=== PATIENT | female | born 1930 | race Caucasian/White ===

== ENCOUNTER 2017-04-24 19:26 | Inpatient (IN) | payer MEDICARE, OTHER ==
[~2017-04-24] VITALS: Ht 157.5 cm; Wt 78.1 kg
[2017-04-24 20:40] LABS: BASO # 0.1 x10^3/uL (0.0-0.2); BASO % 1 % (0-3); EOS # 0.1 x10^3/uL (0.0-0.7); EOS % 2 % (0-3); HEMATOCRIT 33.4 % (36.0-47.0); HEMOGLOBIN 11.2 g/dL (12.0-15.5); LYMPH # 1.6 x10^3/uL (1.0-4.8); LYMPH % 22 % (24-48); MEAN CORPUSCULAR HEMOGLOBIN 30 pg (25-35); MEAN CORPUSCULAR HGB CONC 34 g/dL (31-37); MEAN CORPUSCULAR VOLUME 90 fL (79-100); MONO # 0.7 x10^3/uL (0.0-1.1); MONO % 9 % (0-9); NEUT # 4.8 x10^3uL (1.8-7.7); NEUT % 67 % (31-73); PLATELET COUNT 213 x10^3/uL (140-400); RED BLOOD COUNT 3.72 x10^6/uL (3.50-5.40); RED CELL DISTRIBUTION WIDTH 14.5 % (11.5-14.5); WHITE BLOOD COUNT 7.2 x10^3/uL (4.0-11.0)
[2017-04-24 20:51] LABS: ALBUMIN 3.5 g/dL (3.4-5.0); ALBUMIN/GLOBULIN RATIO 1.1 (1.0-1.7); CALCIUM 8.7 mg/dL (8.5-10.1); CREATININE 0.8 mg/dL (0.6-1.0); GFR 67.8; MAGNESIUM 2.1 mg/dL (1.8-2.4); TOTAL BILIRUBIN 0.5 mg/dL (0.2-1.0); TOTAL PROTEIN 6.6 g/dL (6.4-8.2)
--- NOTE | 2017-04-24 21:14 | EKG ---
[address] [address] Test Date: 2017-04-24 Test Time: 19:50:54 Pat Name: PARIS ESQUEDA Department: Room: Gender: F Despatching And Receiving Clerk: : [id number] Requested By: TYSHAWN PLUMMER Order Number: [id number] Reading MD: Edson Lara Measurements Intervals [place] Rate: 94 P: 78 VT: 184 QRS: -47 QRSD: 94 T: 17 QT: 348 QTc: 441 Interpretive Statements SINUS RHYTHM VENTRICULAR PREMATURE COMPLEX(ES) ABNORMAL LEFT AXIS DEVIATION LEFT ANTERIOR FASCICULAR BLOCK SUGGESTIVE OF SEPTAL INFARCT Electronically Signed On 05-02-2017 15:37:20 CDT by Edson Lara
[2017-04-24 21:23] LABS: BILIRUBIN,URINE NEG (NEG); CLARITY,URINE HAZY; COLOR,URINE STRAW; GLUCOSE,URINE NEG (NEG); NITRITE,URINE NEG (NEG); UROBILINOGEN,URINE 0.2 mg/dL (0.2 mg/dL)
[2017-04-24 21:34] LABS: BACTERIA,URINE 0 /HPF (0-FEW); SQUAMOUS EPITHELIAL CELL,UR FEW /LPF
[2017-04-24 21:35] LABS: HYALINE CASTS, URINE MOD /HPF
--- NOTE | 2017-04-24 21:41 | PHYS DOC ---
Past History Past Medical History: Dementia, Depression, GERD, Hypertension, URI Past Surgical History: No Surgical History Alcohol Use: None Drug Use: None Adult General Chief Complaint Chief Complaint: PSYCH EVALUATION HPI HPI Patient is a 86 year old female who presents with her daughter for medical clearance for psychiatric admission. The patient has 7 week history of increased confusion which is episodic/intermittent. She has paranoia, thinks that people are trying to get into her home. Sometimes she has decreased ability to communicate. She was recently treated for UTI but follow up UA showed resolution of infection. Today she denies any complaints, denies headache, vision changes, chest pain, shortness of breath, abdominal pain, nausea/vomiting/diarrhea, dysuria, extremity numbness/weakness. She has chronic lower extremity edema which is unchanged today. She is from [facility] & has a recent hospital admission to [facility] [place] at time of symptom onset. Review of Systems Review of Systems Constitutional: Denies fever or chills Eyes: Denies change in visual acuity HENT: Denies nasal congestion or sore throat Respiratory: Denies cough or shortness of breath Cardiovascular: Denies chest pain, reports chronic edema GI: Denies abdominal pain, nausea, vomiting, bloody stools or diarrhea : Denies dysuria or hematuria Musculoskeletal: Denies back pain or joint pain Integument: Denies rash or skin lesions Neurologic: Denies headache, focal weakness or sensory changes. reports altered mental status. Psychiatric: Reports paranoia. Allergies Allergies Allergies Coded Allergies Type Severity Reaction Last Updated Verified alendronate sodium Allergy Intermediate 04/24/17 Yes risedronate sodium Allergy Intermediate 04/24/17 Yes Physical Exam Physical Exam Constitutional: obese, no acute distress, non-toxic appearance. HENT: Normocephalic, atraumatic, bilateral external ears normal, oropharynx moist, nose normal. Eyes: PERRLA, EOMI, conjunctiva normal, no discharge. Neck: supple, no stridor. Cardiovascular: RRR, no murmurs Lungs & Thorax: LCTAB, no wheezing, no respiratory distress. Abdomen: soft, nontender, nondistended. Skin: Warm, dry, no erythema, no rash. Back: No tenderness. Extremities: No tenderness, 3+ edema to bilateral LE Neurologic: Alert and oriented to person & place but responses are delayed, CN2- 12 grossly intact, symmetric strength/sensation to UE & LE, no focal deficits noted. Psychologic: flat affect Current Patient Data Vital Signs Vital Signs Date Time Temp Pulse Resp B/P (MAP) Pulse Ox O2 Delivery O2 Flow Rate FiO2 04/24/17 20:52 97.5 91 16 95 Room Air Lab Results Laboratory Tests Test 04/24/17 20:22 04/24/17 21:10 White Blood Count 7.2 x10^3/uL (4.0-11.0) Red Blood Count 3.72 x10^6/uL (3.50-5.40) Hemoglobin 11.2 g/dL (12.0-15.5) L Hematocrit 33.4 % (36.0-47.0) L Mean Corpuscular Volume 90 fL (79-100) Mean Corpuscular Hemoglobin 30 pg (25-35) Mean Corpuscular Hemoglobin Concent 34 g/dL (31-37) Red Cell Distribution Width 14.5 % (11.5-14.5) Platelet Count 213 x10^3/uL (140-400) Neutrophils (%) (Auto) 67 % (31-73) Lymphocytes (%) (Auto) 22 % (24-48) L Monocytes (%) (Auto) 9 % (0-9) Eosinophils (%) (Auto) 2 % (0-3) Basophils (%) (Auto) 1 % (0-3) Neutrophils # (Auto) 4.8 x10^3uL (1.8-7.7) Lymphocytes # (Auto) 1.6 x10^3/uL (1.0-4.8) Monocytes # (Auto) 0.7 x10^3/uL (0.0-1.1) Eosinophils # (Auto) 0.1 x10^3/uL (0.0-0.7) Basophils # (Auto) 0.1 x10^3/uL (0.0-0.2) Sodium Level 135 mmol/L (136-145) L Potassium Level 4.0 mmol/L (3.5-5.1) Chloride Level 100 mmol/L (98-107) Carbon Dioxide Level 28 mmol/L (21-32) Anion Gap 7 (6-14) Blood Urea Nitrogen 14 mg/dL (7-20) Creatinine 0.8 mg/dL (0.6-1.0) Estimated GFR (Cockcroft-Gault) 67.8 BUN/Creatinine Ratio 18 (6-20) Glucose Level 102 mg/dL (70-99) H Calcium Level 8.7 mg/dL (8.5-10.1) Magnesium Level 2.1 mg/dL (1.8-2.4) Total Bilirubin 0.5 mg/dL (0.2-1.0) Aspartate Amino Transferase (AST) 17 U/L (15-37) Alanine Aminotransferase (ALT) 23 U/L (14-59) Alkaline Phosphatase 82 U/L (46-116) Total Protein 6.6 g/dL (6.4-8.2) Albumin 3.5 g/dL (3.4-5.0) Albumin/Globulin Ratio 1.1 (1.0-1.7) Urine Collection Type U cath Urine Color Straw Urine Clarity Hazy Urine pH 6.0 Urine Specific [place] 1.015 Urine Protein Neg (NEG-TRACE) Urine Glucose (UA) Neg mg/dL (NEG) Urine Ketones (Stick) 15 mg/dL (NEG) Urine Blood Large (NEG) Urine Nitrite Neg (NEG) Urine Bilirubin Neg (NEG) Urine Urobilinogen Dipstick 0.2 mg/dL (0.2 mg/dL) Urine Leukocyte Esterase Neg (NEG) Urine RBC 11-20 /HPF (0-2) Urine WBC 1-4 /HPF (0-4) Urine Squamous Epithelial Cells Few /LPF Urine Bacteria 0 /HPF (0-FEW) Urine Hyaline Casts Mod /HPF Urine Mucus Mod /LPF EKG EKG Interpreted by me: Normal sinus rhythm rate 94, no acute ST or T wave changes, Q waves in leads V1 through V3, normal intervals, PVCs [] Radiology/Procedures Radiology/Procedures Chest x-ray portable: Interpreted by me: Cardiomegaly, no infiltrate, no pneumothorax, no acute process. [] Obtained records from [facility] [place] with documentation of recent head CT showing no intracranial hemorrhage or mass, chronic ischemic changes were present. Course & Med Decision Making Course & Med Decision Making Pertinent Labs and Imaging studies reviewed. (See chart for details) The patient presents with altered mental status and paranoia. No medical complaints today. Obtained labs, EKG, UA, chest x-ray. No acute abnormalities identified. Obtained records from [facility] [place]. Her recent admission. She has had recent head CT with no new symptom onset that time. She is medically stable. She has already been accepted to [facility] and will be transferred in stable condition. The patient and her daughter agree with plan of care. [] Dragon Disclaimer Dragon Disclaimer This chart was dictated in whole or in part using Voice Recognition software in a busy, high-work load, and often noisy Emergency Department environment. It may contain unintended and wholly unrecognized errors or omissions. Departure Departure: Impression: Primary Impression: Altered mental status Additional Impression: Paranoia Disposition: 65 XFER TO PSYCH HOSP/UNIT Condition: GUARDED Referrals: NON,STAFF (PCP) Problem Qualifiers TYSHAWN PLUMMER MD Apr 24, 2017 21:41
--- NOTE | 2017-04-24 22:05 | NUR ---
Admit: Pt received via EMS to room 207, Alert drowsy answers questions slowly. Is able to state name and , Breath sounds clear abdomen soft with active BS, heart sounds regular with murmur heard, legs have 2-3+ nonpitting edema, involuntary twitching of L foot noted. Skin checked and found reddened areas under each breast both buttocks also have large reddened areas, photos taken of these areas. Pt placed in pt gown and settled into bed with no complaints, denies pain.
[2017-04-24 22:26] VITALS: BP 168/66
[2017-04-24] MEDS ORDERED: MAG360OR24 PO (22:36)
[2017-04-24] MEDS ORDERED: MOME15OI TP (22:36)
[2017-04-24] MEDS ORDERED: BACL10TA PO (22:36)
[2017-04-24] MEDS ORDERED: ASPI81TA50 PO (22:36)
[2017-04-24] MEDS ORDERED: LORA10TA3 PO (22:36)
[2017-04-24] MEDS ORDERED: LOPE2TAB27 PO (22:36)
[2017-04-24] MEDS ORDERED: AMLO5TAB2 PO (22:36)
[2017-04-24] MEDS ORDERED: NYST15CR2 TP (23:11)
[2017-04-24] MEDS ORDERED: VALS160T3 PO (23:11)
[2017-04-24] MEDS ORDERED: SIMV20TA3 PO (23:11)
[2017-04-24] MEDS ORDERED: [UNRECOGNIZED DRUG - CODE] TP (23:11)
[2017-04-24] MEDS ORDERED: [UNRECOGNIZED DRUG - CODE] TP (23:11)
[2017-04-24] MEDS ORDERED: OMEP20CA9 PO (23:11)
[2017-04-24] MEDS ORDERED: VITA200C PO (23:11)
[2017-04-24] MEDS ORDERED: PROP15DR40 OP (23:11)
[2017-04-24] MEDS ORDERED: AZEL6DRO2 OP (23:11)
[2017-04-24] MEDS ORDERED: ACET325T9 PO (23:11)
[2017-04-24] MEDS ORDERED: QUET50TA5 PO (23:11)
[2017-04-24] MEDS ORDERED: CALC1TAB70 PO (23:11)
[2017-04-24] MEDS ORDERED: TEMA15CA6 PO (23:11)
[2017-04-24] MEDS ORDERED: SERT50TA PO (23:11)
[2017-04-24] MEDS ORDERED: METHYL SALICYLATE/MENTHOL TOPICAL OINTMENT 29GM TUBE. TP PRN (23:15)
[2017-04-24] MEDS ORDERED: MAG HYDROX/AL HYDROX/SIMETH 30 ML ORAL.SUSP PO PRN (23:15)
[2017-04-24] MEDS ORDERED: MAGNESIUM HYDROXIDE 2,400 MG/30 ML ORAL.SUSP. PO PRN (23:15)
[2017-04-24] MEDS ORDERED: ACETAMINOPHEN 325 MG TABLET PO PRN (23:15)
[2017-04-24] MEDS ORDERED: UREA 10% TP PRN (23:30)
[2017-04-24] MEDS ORDERED: TEMAZEPAM 15 MG CAPSULE PO PRN (23:30)
[2017-04-24] MEDS ORDERED: ZINC OXIDE/COD LIVER OIL 40% TOPICAL OINTMENT 56GM TUBE. TP PRN (23:45)
[2017-04-24] MEDS ORDERED: POLYVINYL ALCOHOL 1.4% OPHTH SOLUTION 15ML BOTTLE. OU PRN (23:45)
--- NOTE | 2017-04-25 01:40 | ACF ---
Admission Criteria Forms MENTAL STATUS CHANGE Clinical Indications for Inpatient Care (Place 'X' for any and all applicable criteria): Ongoing inpatient care may be needed for 1 or more of the following(1)(2)(3)(5)( 6): [X]I. Suspected serious etiology (eg, medical disorder, GOLD PROSPECTOR event) of altered mental status [ ]II. Danger to self or others not manageable at lower level of care [ ]III. Grave disability (eg, inability to perform self care necessary at lower level of care) [ ]IV. Agitation or inappropriate behavior interfering with care for primary condition (eg, attempting to discontinue lines or drains prematurely, unable to cooperate with respiratory care) [ ]V. Delirium [A] [D][E] as described by 1 or more of the following(26): [ ]a) Delirium due to alcohol or sedative [F] withdrawal [ ]b) Delirium of uncertain etiology that has not responded to appropriate empiric treatment [ ]c) Delirium that prevents performance of a life-sustaining function (eg, feeding or hydrating oneself) [ ]. General contraindications and/or Inappropriate clinical situations for Observational Care in patients with Mental Status Change, when ANY ONE of the following is required: [ ]a) Prediction of prolongation of LOS based on ANY ONE of the following may be considered as a contraindication for observational care 2, 3, 4, 5, 6, 7, 8, 9, 10, 11 [ ]i) Age > 65 yrs. [ ]ii) Patient arriving by ambulance [ ]iii) Patient with high acuity [ ]iv) Patient requiring vital sign monitoring [ ]v) Patient on IV medication [ ]b) Systolic blood pressures greater than or equal to 180mmHg 3, 12 [ ]c) Patient with altered mental status including delirium and other alteration of consciousness, (3) [ ]d) Patient whose discharge disposition will be to a detention home or rehabilitation home should not be managed in Emergency Department Observation Unit. CMS rule requires 3 days hospital stay before such placement.3,13 [ ]e) Patient with failure to thrive due to broad array of etiologies 3,16,17 [ ]f) Inability to ambulate 3,14 Extended stay beyond goal length of stay for the primary condition may be needed until ALL of the following are present(3)(5): [ ]a) Underlying medical etiology of mental status change is absent, or has been established and adequately treated [ ]b) Danger to self or others is absent or manageable at lower level of care. [ ]c) Behavior crisis management, including physical or chemical restraints, is not required or available at lower level of car [ ]d) Substance or alcohol withdrawal is absent or manageable at lower level of care. [ ]e) Behavioral symptoms (eg, agitation, somnolence, inappropriate behavior) are absent, or are manageable at lower level of care. The original [facility] content created by [facility] has been revised. The portions of the content which have been revised are identified through the use of italic text or in bold, and [facility] has neither reviewed nor approved the modified material. All other unmodified content is copyright [facility] [employer]. Please see references footnoted in the original [facility] [employer] edition 2016 Admission Criteria Met?: Yes LUNA PHAM Apr 25, 2017 01:40
[2017-04-25 05:41] VITALS: BP 150/64
--- NOTE | 2017-04-25 07:29 | RAD ---
Single portable AP chest radiograph 04/24/2017 Clinical indication: Altered mental status. Comparison: None. Findings: Tortuosity of the thoracic aorta with calcified atheromatous disease most prominent at the thoracic aortic arch. Multiple surgical clips overlying the central thorax. Hypoinflation of both lungs with mild bibasilar atelectasis. No pleural effusion, pneumothorax. Impression: 1. Hypoinflation of both lungs with mild bibasilar atelectasis. 2. 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
--- NOTE | 2017-04-25 08:30 | NUR ---
While assessing pt, Maryam informed me that she was reading a book about "women having sex with each other." And that she "asked everyone in the dining room if they would have sex with her but nobody would." When asked where pt was, pt responded the "queer house."
[2017-04-25] MEDS: ASPIRIN ENTERIC COATED 81 MG TABLET.DR. PO SCH (08:45)
[2017-04-25] MEDS: amLODIPine BESYLATE 5 MG TABLET PO SCH (08:45)
[2017-04-25] MEDS: CETIRIZINE HCL 10 MG TABLET PO SCH (08:45)
[2017-04-25] MEDS: CALCIUM CARB/VIT D3 500/200 TABLET PO SCH (08:45)
[2017-04-25] MEDS: BACLOFEN 10 MG TABLET PO SCH ×3 (08:45→19:32)
[2017-04-25] MEDS: PANTOPRAZOLE 40 MG TABLET. PO SCH (08:45)
[2017-04-25] MEDS: SERTRALINE 50 MG TABLET. PO SCH (08:45)
[2017-04-25] MEDS: LOSARTAN 50 MG TABLET. PO SCH (08:46)
[2017-04-25] MEDS: VITAMIN E 200 UNIT CAPSULE. PO SCH (08:46)
[2017-04-25] MEDS: KETOTIFEN FUMARATE 0.025% OPHT SOLUTION BOTTLE. OU SCH ×2 (08:51→19:32)
[2017-04-25] MEDS: NYSTATIN/TRIAMCIN TOPICAL CREAM 15GM TUBE. TP SCH (08:51)
[2017-04-25] MEDS ORDERED: FLUOCINONIDE/EMOLLIENT 0.05% TOPICAL CREAM 15GM TUBE TP PRN (09:00)
--- NOTE | 2017-04-25 09:00 | NUR ---
THERAPEUTIC RECREATION GROUP NOTE TITLE :Movie- PARTICIPATION LEVEL REPORTED by CNAs ACTIVITY : Activities and Games GOAL : Increase alertness, focus, morale, decrease stress DURATION : 75 minutes RESPONSE : No participation
[2017-04-25 11:15] LABS: THYROID STIM HORMONE (TSH) 0.998 uIU/mL (0.358-3.740)
--- NOTE | 2017-04-25 11:30 | NUR ---
THERAPEUTIC RECREATION GROUP NOTE TITLE :Movement to Music: Strength ACTIVITY : Exercise/Movement GOAL : Increase morale, attention, flexibility. Decrease stress/anxiety. DURATION : 30 minutes RESPONSE : No participation
--- NOTE | 2017-04-25 12:50 | NUR ---
Behavior Intervention Response and Plan: BIRP Note: Behavior: Assumed Care of patient, patient located in Hallway at shift change. Patient exhibited the following behavior Wandering, Disorganized, Compliant. Brief assessment on rounds of vital signs, medication needs, lab studies, and pain. Treatment plan problems 1-2. Intervention: Patient assessed and the following interventions initiated safety checks 15 Minute Checks Cognitive Assessment , Head to toe Assessment , Medications. Response: After interactions and interventions patient responded in the following manner, Disorganized , Wandering ,Cooperative. Continue to assess behaviors and condition will continue to monitor throughout the shift as needed. Patient educated on ADL's, and hand hygiene. Plan: Continue to monitor Master Treatment Plan for patient's progress toward short term goals of Decreased Anxiety, Medication Compliance, terminal operations supervisor goals to return to previous living setting vs placement. Continue to assess patient for changes in above assessment. Monitor for medication needs, pain, and safety concerns. Hourly rounding performed to ensure safe environment.
--- NOTE | 2017-04-25 14:15 | NUR ---
THERAPEUTIC RECREATION GROUP NOTE TITLE : Social Hour: Patio, Bubbles and Seed Flicking Contest ACTIVITY : Activities and Games GOAL : Increase alertness, focus, socialization, morale, decrease stress DURATION : 75 minutes RESPONSE : Minimal participation. Pt. needed encouragement to join the group. She only sat outside for a few minutes and flicked raisins in the contest, after verbal cues and demonstration. She left to wander.
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
[2017-04-25 15:51] VITALS: BP 127/59
[2017-04-25] MEDS ORDERED: ACETAMINOPHEN 325 MG TABLET PO PRN (17:34)
[2017-04-25] MEDS: QUEtiapine 50 MG TABLET. PO SCH (17:34)
[2017-04-25 18:08] LABS: T3 TOTAL 92 ng/dL (71-180); THYROXINE 8.1 ug/dL (4.5-12.0)
[2017-04-25] MEDS: ATORVASTATIN CALCIUM 10 MG TABLET. PO SCH (19:32)
--- NOTE | 2017-04-25 19:45 | PDOC ---
Exam Nito Demential Exam: Nito Note: Please also refer to the separate dictated note~for this date of service dictated separately.~Patient seen individually. Discussed the patient with Nursing staff reviewed the chart.~Reviewed interim history and current functioning. Reviewed vital signs,~Labs/ Radiology~and current medications noted below. Continue current treatment with the changes noted in the dictated addendum note Assessment: Vital Signs: Vital Signs Date Time Temp Pulse Resp B/P (MAP) Pulse Ox O2 Delivery O2 Flow Rate FiO2 04/25/17 15:51 97.4 100 20 127/59 (81) 95 04/24/17 22:26 Room Air Labs: Laboratory Tests Test 04/24/17 20:22 04/24/17 21:10 White Blood Count 7.2 x10^3/uL (4.0-11.0) Red Blood Count 3.72 x10^6/uL (3.50-5.40) Hemoglobin 11.2 g/dL (12.0-15.5) L Hematocrit 33.4 % (36.0-47.0) L Mean Corpuscular Volume 90 fL (79-100) Mean Corpuscular Hemoglobin 30 pg (25-35) Mean Corpuscular Hemoglobin Concent 34 g/dL (31-37) Red Cell Distribution Width 14.5 % (11.5-14.5) Platelet Count 213 x10^3/uL (140-400) Neutrophils (%) (Auto) 67 % (31-73) Lymphocytes (%) (Auto) 22 % (24-48) L Monocytes (%) (Auto) 9 % (0-9) Eosinophils (%) (Auto) 2 % (0-3) Basophils (%) (Auto) 1 % (0-3) Neutrophils # (Auto) 4.8 x10^3uL (1.8-7.7) Lymphocytes # (Auto) 1.6 x10^3/uL (1.0-4.8) Monocytes # (Auto) 0.7 x10^3/uL (0.0-1.1) Eosinophils # (Auto) 0.1 x10^3/uL (0.0-0.7) Basophils # (Auto) 0.1 x10^3/uL (0.0-0.2) Sodium Level 135 mmol/L (136-145) L Potassium Level 4.0 mmol/L (3.5-5.1) Chloride Level 100 mmol/L (98-107) Carbon Dioxide Level 28 mmol/L (21-32) Anion Gap 7 (6-14) Blood Urea Nitrogen 14 mg/dL (7-20) Creatinine 0.8 mg/dL (0.6-1.0) Estimated GFR (Cockcroft-Gault) 67.8 BUN/Creatinine Ratio 18 (6-20) Glucose Level 102 mg/dL (70-99) H Calcium Level 8.7 mg/dL (8.5-10.1) Magnesium Level 2.1 mg/dL (1.8-2.4) Iron Level 48 ug/dL (50-170) L Total Iron Binding Capacity 273 ug/dL (250-450) Iron Saturation 18 % (15-34) Total Bilirubin 0.5 mg/dL (0.2-1.0) Aspartate Amino Transferase (AST) 17 U/L (15-37) Alanine Aminotransferase (ALT) 23 U/L (14-59) Alkaline Phosphatase 82 U/L (46-116) Total Protein 6.6 g/dL (6.4-8.2) Albumin 3.5 g/dL (3.4-5.0) Albumin/Globulin Ratio 1.1 (1.0-1.7) Triglycerides Level 46 mg/dL (0-150) Cholesterol Level 108 mg/dL (0-200) LDL Cholesterol, Calculated 59 mg/dL (0-100) VLDL Cholesterol, Calculated 9 mg/dL (0-40) Non-HDL Cholesterol Calculated 68 mg/dL (0-129) HDL Cholesterol 40 mg/dL (40-60) Cholesterol/HDL Ratio 2.0 Vitamin B12 Level 721 pg/mL (247-911) 25-Hydroxy Vitamin D Total Pending Thyroid Stimulating Hormone (TSH) 0.998 uIU/mL (0.358-3.740) Thyroxine (T4) 8.1 ug/dL (4.5-12.0) Total Triiodothyronine (TT3) 92 ng/dL (71-180) RPR Titer Additional Testing Pending Urine Collection Type U cath Urine Color Straw Urine Clarity Hazy Urine pH 6.0 Urine Specific [place] 1.015 Urine Protein Neg (NEG-TRACE) Urine Glucose (UA) Neg mg/dL (NEG) Urine Ketones (Stick) 15 mg/dL (NEG) Urine Blood Large (NEG) Urine Nitrite Neg (NEG) Urine Bilirubin Neg (NEG) Urine Urobilinogen Dipstick 0.2 mg/dL (0.2 mg/dL) Urine Leukocyte Esterase Neg (NEG) Urine RBC 11-20 /HPF (0-2) Urine WBC 1-4 /HPF (0-4) Urine Squamous Epithelial Cells Few /LPF Urine Bacteria 0 /HPF (0-FEW) Urine Hyaline Casts Mod /HPF Urine Mucus Mod /LPF Current Medications: Meds: Current Medications Acetaminophen (Tylenol) 650 mg PRN Q6HRS PRN PO PAIN / TEMP; Start 04/24/17 at 23:15; Stop 04/25/17 at 17:34; Status DC Multi-Ingredient Ointment (Analgesic Grant) 1 prince PRN QID PRN TP MUSCLE PAIN; Start 04/24/17 at 23:15 Al Hydroxide/Mg Hydroxide (Mylanta Plus Xs) 15 ml PRN AFTMEALHC PRN PO DYSPEPSIA; Start 04/24/17 at 23:15 Magnesium Hydroxide (Milk Of Magnesia) 2,400 mg PRN QHS PRN PO CONSTIPATION; Start 04/24/17 at 23:15 Quetiapine Fumarate (SEROquel) 50 mg DAILYWSUP PO Last administered on 17:34; Start 04/25/17 at 17:00 Sertraline HCl (Zoloft) 50 mg DAILY PO Last administered on 04/25/17 08:45; Start 04/25/17 at 09:00 Amlodipine Besylate (Norvasc) 5 mg DAILY PO Last administered on 04/25/17 08:45 ; Start 04/25/17 at 09:00 Aspirin (Aspirin Enteric Coated) 81 mg DAILY PO Last administered on 04/25/17 08:45; Start 04/25/17 at 09:00 Baclofen (Lioresal) 10 mg TID PO Last administered on 04/25/17 19:32; Start 04/25/17 at 09:00 Calcium/Vitamin D (Oscal D 500mg/ 200uts) 1 tab DAILY PO Last administered on 08:45; Start 04/25/17 at 09:00 Nystatin/ Triamcinolone Acetonide (Mycolog Ii) 1 prince DAILY TP Last administered on 04/25/17 08:51; Start 04/25/17 at 09:00 Atorvastatin Calcium (Lipitor) 10 mg QHS PO Last administered on 04/25/17 19:32 ; Start 04/25/17 at 21:00 Temazepam (Restoril) 15 mg PRN QHS PRN PO INSOMNIA; Start 04/24/17 at 23:30 Urea (Aqua Care) 1 prince PRN BID PRN TP calluses; Start 04/24/17 at 23:30 Vitamin E 200 unit DAILY PO Last administered on 04/25/17 08:46; Start 04/25/17 at 09:00 Ketotifen Fumarate (Zaditor) 1 drop BID OU Last administered on 04/25/17 19:32 ; Start 04/25/17 at 09:00 Zinc Oxide (Desitin Diaper Rash 40%) 1 prince PRN BID PRN TP DIAPER RASH; Start at 23:45 Cetirizine HCl (ZyrTEC) 10 mg DAILY PO Last administered on 04/25/17 08:45; Start 04/25/17 at 09:00 Fluocinonide (Lidex-E) 1 prince PRN TID PRN TP FACIAL RASH; Start 04/25/17 at 09:00 Pantoprazole Sodium (Protonix) 40 mg DAILYAC PO Last administered on 04/25/17 08:45; Start 04/25/17 at 07:30 Artificial Tears (Artificial Tears) 2 drop PRN TID PRN OU DRY EYE; Start at 23:45 Losartan Potassium (Cozaar) 100 mg DAILY PO Last administered on 04/25/17 08:46 ; Start 04/25/17 at 09:00 Acetaminophen (Tylenol) 650 mg PRN Q6HRS PRN PO PAIN / TEMP; Start 04/25/17 at 17:34 Active Scripts Active Reported Vanicream Diaper Rash Ointment (Dimethicone/Zinc Oxide) 70 Gm Oint...g. 1 Prince TP BID PRN Vitamin E 200 Unit Capsule 200 Unit PO DAILY Diovan (Valsartan) 160 Mg Tablet 160 Mg PO DAILY Ureacin-10 (Urea) 236.56 Ml Lotion 1 Prince TP BID PRN Tylenol (Acetaminophen) 325 Mg Tablet 650 Mg PO PRN Q4HRS PRN Restoril (Temazepam) 15 Mg Capsule 15 Mg PO HS PRN Systane 0.3-0.4% Eye Drops (Propylene Glycol/Peg 400) 15 Ml Drops 2 Drop OP TID PRN Simvastatin 20 Mg Tablet 20 Mg PO HS Seroquel (Quetiapine Fumarate) 50 Mg Tablet 50 Mg PO DAILYWSUP Zoloft (Sertraline Hcl) 50 Mg Tablet 50 Mg PO DAILY Oyster Shell 500 Mg + Vit D Tb (Calcium Carbonate/Vitamin D3) 1 Each Tablet 1 Tab PO DAILY Azelastine Hcl 6 Ml Drops 1 Drop OP PRN Q8HRS PRN Omeprazole 20 Mg Capsule.dr 20 Mg PO DAILY Nystatin-Triamcinolone Cream (Nystatin/Triamcin) 15 Gm Cream..g. 1 Applic TP DAILY Alum-Mag Hydroxide-Simeth Liq (Mag Hydrox/Al Hydrox/Simeth) 360 Ml Oral.susp 30 Ml PO PRN Q4HRS Loratadine 10 Mg Tablet 10 Mg PO DAILY Loperamide (Loperamide Hcl) 2 Mg Tablet 4 Mg PO PRN MDD 8 tabs/24 hours Elocon (Mometasone Furoate) 15 Gm Oint...g. 1 Prince TP PRN DAILY PRN Baclofen 10 Mg Tablet 10 Mg PO TID Aspir-Low (Aspirin) 81 Mg Tablet. 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
--- NOTE | 2017-04-25 21:35 | NUR ---
Behavior Intervention Response and Plan: BIRP Note: Behavior: Assumed Care of patient, patient located in Patient Room at shift change. Patient exhibited the following behavior Sleeping, Calm, Able to Focus on Task. Brief assessment on rounds of vital signs, medication needs, lab studies, and pain. Treatment plan problems . Intervention: Patient assessed and the following interventions initiated safety checks 15 Minute Checks Cognitive Assessment , Head to toe Assessment , Medications. Response: After interactions and interventions patient responded in the following manner, Appropriate , Cooperative ,Compliant. Continue to assess behaviors and condition will continue to monitor throughout the shift as needed. Patient educated on ADL's, and hand hygiene. 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 Continue to assess patient for changes in above assessment. Monitor for medication needs, pain, and safety concerns. Hourly rounding performed to ensure safe environment.
--- NOTE | 2017-04-25 23:09 | CONS ---
DATE OF CONSULTATION: 04/25/2017 HISTORY OF PRESENT ILLNESS: The patient is an 86-year-old female patient, resident at [facility] in [place], who was admitted on the account of increasing paranoia, exit seeking, disoriented. She normally is alert, oriented x 3 at baseline. She has been ataxic, hallucinating, standing in front door for hours and was admitted to [facility] for inpatient psychiatric stabilization. PAST MEDICAL HISTORY: Significant for hypertension, gastroesophageal reflux disease, peripheral vascular disease, chronic constipation, PAST PSYCHIATRIC HISTORY: Includes major depressive disorder with psychotic features. PAST SURGICAL HISTORY: Significant for cholecystectomy, appendectomy, and right total knee arthroplasty. ALLERGIES: She is allergic to ALENDRONATE AND RISEDRONATE. MEDICATIONS: She is currently on the following medications: Tylenol 650 mg every 4 hours, amlodipine 5 mg once a day, aspirin 81 mg once a day, azelastine 6 mL drops, 1 drop to both eyes every 8 hours, baclofen 10 mg 3 times a day, calcium carbonate with vitamin D3 one tablet p.o. daily, dimethicone and zinc oxide for Vanicream Diaper Rash ointment twice a day, loperamide 4 mg as needed, loratadine 10 mg once a day, magnesium hydroxide 30 mL daily p.r.n. for constipation, mometasone for Elocon topically daily, nystatin-triamcinolone cream applied topically daily. She is on omeprazole 20 mg once a day, propylene glycol for Systane 0.32 0.4% eye drops, 2 drops to both eyes 3 times a day, quetiapine fumarate 50 mg daily, sertraline 50 mg daily, simvastatin 20 mg at bedtime, temazepam 15 mg at bedtime, urea topically twice a day, valsartan 160 mg once a day, vitamin E 200 units once a day. FAMILY HISTORY: Unremarkable. SOCIAL HISTORY: She is a resident at others [facility]. She does not smoke, drink alcohol or use recreational drugs. She has one daughter. PHYSICAL EXAMINATION: GENERAL: When I saw her this afternoon, she was sitting comfortably in her chair in no apparent distress, slightly pale, but no jaundice, cyanosis, lymphadenopathy or thyromegaly. No jugular venous distention. No limb edema. VITAL SIGNS: Her heart rate was 100, blood pressure was 127/59, temperature was 97.4, respiratory rate 20, and oxygen saturation was 95%. HEENT: Showed normocephalic, atraumatic. NECK: Supple. HEART: Showed normal first and second heart sounds with no gallop, rub or murmur. CHEST: Clear to auscultation. No crepitation or rhonchi. ABDOMEN: Distended, soft, nontender. No guarding or rigidity. No organomegaly. Hernial orifices intact. Bowel sounds normal. NEUROLOGIC: She was awake, alert, oriented to time, place and person. Cranial nerves intact. EXTREMITIES: She moves extremities without difficulty. She ambulates with a walker. LABORATORY DATA: Showed her white cell count was 7200, hemoglobin 11, hematocrit 23, MCV 90 and platelet count 213,000. Her chemistry showed a serum sodium of 135, potassium 4, chloride 100, bicarbonate 28, anion gap of 7, BUN 14, creatinine 0.8, estimated GFR was 68 mL per minute. Her glucose was 102, calcium was 8.2. Magnesium 2.1. Serum iron 48, total iron binding capacity 273. Iron saturation was 18. Total bilirubin, AST, ALT, alkaline phosphatase were normal. Total protein was 6.6, albumin 3.5. Serum triglycerides were 46. Total cholesterol was 108, LDL was ____, VLDL 9, and HDL cholesterol was 40, the ratio was 2. Her B12 was 720. TSH was 0.998. Urinalysis was essentially unremarkable. Chest x-ray showed hyperinflation of both lungs with mild bibasilar atelectasis, calcified atheromatous disease of the thoracic aorta. IMPRESSION: In summary, this is an 86-year-old female patient, a resident at [facility], was admitted on the account of being paranoid, upset, exit seeking, disoriented, standing in front of door for hours, all of these on a background of major depressive disorder, psychotic features. She has multiple medical problems including hypertension, gastroesophageal reflux disease, peripheral vascular disease and chronic constipation. Her vital signs are stable. All her lab works are within normal range and all in all, she seemed to be medically stable. There are some labs that are still pending at the time of this dictation that I will review and make any necessary recommendation. Thank you, Dr. Contreras, for allowing me to participate in the care of this patient. HONORIO COLE MD DR: ADITHYA/tomi JOB#: [id number] / [id number]
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
[2017-04-26 02:09] LABS: HEMOGLOBIN A1C 4.9 % (4.8-5.6)
[2017-04-26 05:54] VITALS: BP 166/88
[2017-04-26] MEDS: CALCIUM CARB/VIT D3 500/200 TABLET PO SCH (07:57)
[2017-04-26] MEDS: PANTOPRAZOLE 40 MG TABLET. PO SCH (07:57)
[2017-04-26] MEDS: BACLOFEN 10 MG TABLET PO SCH ×3 (07:57→19:44)
[2017-04-26] MEDS: ASPIRIN ENTERIC COATED 81 MG TABLET.DR. PO SCH (07:57)
[2017-04-26] MEDS: CETIRIZINE HCL 10 MG TABLET PO SCH (07:58)
[2017-04-26] MEDS: amLODIPine BESYLATE 5 MG TABLET PO SCH (07:59)
[2017-04-26] MEDS: SERTRALINE 50 MG TABLET. PO SCH (07:59)
[2017-04-26] MEDS: VITAMIN E 200 UNIT CAPSULE. PO SCH (07:59)
[2017-04-26] MEDS: LOSARTAN 50 MG TABLET. PO SCH (07:59)
[2017-04-26] MEDS: KETOTIFEN FUMARATE 0.025% OPHT SOLUTION BOTTLE. OU SCH ×2 (08:01→19:46)
[2017-04-26] MEDS: NYSTATIN/TRIAMCIN TOPICAL CREAM 15GM TUBE. TP SCH (08:02)
--- NOTE | 2017-04-26 09:15 | NUR ---
THERAPEUTIC RECREATION GROUP NOTE TITLE :Social Session: Balloon Bump and Life Stories ACTIVITY : Activities and Games GOAL : Increase alertness, focus, socialization, morale, decrease stress DURATION : 45 minutes RESPONSE : No participation
--- NOTE | 2017-04-26 10:30 | NUR ---
Behavior Intervention Response and Plan: BIRP Note: Behavior: Assumed Care of patient, patient located in Patient Room at shift change. Patient exhibited the following behavior Disorganized, Sarcastic, Resistive. Brief assessment on rounds of vital signs, medication needs, lab studies, and pain. Treatment plan problems 1 & 2. Intervention: Patient assessed and the following interventions initiated safety checks 15 Minute Checks Cognitive Assessment , Head to toe Assessment , Medications. Response: After interactions and interventions patient responded in the following manner, Calm , Appropriate ,Compliant. Continue to assess behaviors and condition will continue to monitor throughout the shift as needed. Patient educated on ADL's, and hand hygiene. 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 Continue to assess patient for changes in above assessment. Monitor for medication needs, pain, and safety concerns. Hourly rounding performed to ensure safe environment.
--- NOTE | 2017-04-26 11:30 | NUR ---
THERAPEUTIC RECREATION GROUP NOTE TITLE :Movement to Music: Flexibility ACTIVITY : Movement/ Exercise GOAL : Increase morale, attention, flexibility. Decrease stress/anxiety. DURATION : 30 Minutes RESPONSE : Minimal participation. Pt. took little interest in the work out moves but talked the entire time, with another female patient and to herself. She only did heel raises. She was frustrated with people banging on her door to get her up for breakfast, stating that was no way to treat people.
--- NOTE | 2017-04-26 15:25 | NUR ---
THERAPEUTIC RECREATION GROUP NOTE TITLE :Social Session: Chocolate Chip Cookie and Chat ACTIVITY : Activities and Games GOAL : Increase alertness, focus, socialization, morale, decrease stress DURATION : 20 minutes RESPONSE : No participation
--- NOTE | 2017-04-26 16:02 | NUR ---
Patient used call light in bathroom, complains of bleeding from her bottom. Her hand has bright red blood. Attempted to assess, she refused, stating that she wants a woman. SHAWN Velasquez looked at wound, states that the patient's coccyx area looks raw. Cream applied to wound by BEHAVIORAL HEALTH CLINICIAN; will request wound consult and notify .
[2017-04-26 16:18] VITALS: BP 107/64
[2017-04-26] MEDS: QUEtiapine 50 MG TABLET. PO SCH (17:01)
--- NOTE | 2017-04-26 17:11 | NUR ---
Group Note [facility] Group Type: Reminisce Start Time: 4:30 pm End Time: 5:00 pm Problem: Psychotic Symptoms Purpose: Stimulate Memory Level of Participation: High Behaviors or Symptoms Observed: PT. held full conversations w/her self when peer would talk w/SW in group Interventions: Reminiscence, validation Response: Actively engaged w/SW and peer when directly spoken to or acknowledged, but would continue a conversation w/self, sometimes about things in reality and sometimes as if she was actually talking to someone else. Plan: continue to monitor
[2017-04-26] MEDS: ATORVASTATIN CALCIUM 10 MG TABLET. PO SCH (19:44)
[2017-04-26] MEDS: risperiDONE 0.25 MG TABLET. PO SCH (19:46)
--- NOTE | 2017-04-26 19:59 | PDOC ---
Exam Nito Demential Exam: Nito Note: Please also refer to the separate dictated note~for this date of service dictated separately.~Patient seen individually. Discussed the patient with Nursing staff reviewed the chart.~Reviewed interim history and current functioning. Reviewed vital signs,~Labs/ Radiology~and current medications noted below. Continue current treatment with the changes noted in the dictated addendum note Assessment: Vital Signs: Vital Signs Date Time Temp Pulse Resp B/P (MAP) Pulse Ox O2 Delivery O2 Flow Rate FiO2 04/26/17 16:18 98.1 84 18 107/64 (78) 94 04/24/17 22:26 Room Air I&O Intake and Output 04/26/17 07:00 Intake Total 720 ml Balance 720 ml Intake Oral 720 ml # Bowel Movements 1 Current Medications: Meds: Current Medications Acetaminophen (Tylenol) 650 mg PRN Q6HRS PRN PO PAIN / TEMP; Start 04/24/17 at 23:15; Stop 04/25/17 at 17:34; Status DC Multi-Ingredient Ointment (Analgesic [place]) 1 prince PRN QID PRN TP MUSCLE PAIN; Start 04/24/17 at 23:15 Al Hydroxide/Mg Hydroxide (Mylanta Plus Xs) 15 ml PRN AFTMEALHC PRN PO DYSPEPSIA; Start 04/24/17 at 23:15 Magnesium Hydroxide (Milk Of Magnesia) 2,400 mg PRN QHS PRN PO CONSTIPATION; Start 04/24/17 at 23:15 Quetiapine Fumarate (SEROquel) 50 mg DAILYWSUP PO Last administered on 17:01; Start 04/25/17 at 17:00; Stop 04/26/17 at 18:19; Status DC Sertraline HCl (Zoloft) 50 mg DAILY PO Last administered on 04/26/17 07:59; Start 04/25/17 at 09:00 Amlodipine Besylate (Norvasc) 5 mg DAILY PO Last administered on 04/26/17 07:59 ; Start 04/25/17 at 09:00 Aspirin (Aspirin Enteric Coated) 81 mg DAILY PO Last administered on 04/26/17 07:57; Start 04/25/17 at 09:00; Stop 04/26/17 at 17:27; Status DC Baclofen (Lioresal) 10 mg TID PO Last administered on 04/26/17 19:44; Start 04/25/17 at 09:00 Calcium/Vitamin D (Oscal D 500mg/ 200uts) 1 tab DAILY PO Last administered on 07:57; Start 04/25/17 at 09:00 Nystatin/ Triamcinolone Acetonide (Mycolog Ii) 1 prinec DAILY TP Last administered on 04/26/17 08:02; Start 04/25/17 at 09:00 Atorvastatin Calcium (Lipitor) 10 mg QHS PO Last administered on 04/26/17 19:44 ; Start 04/25/17 at 21:00 Temazepam (Restoril) 15 mg PRN QHS PRN PO INSOMNIA; Start 04/24/17 at 23:30 Urea (Aqua Care) 1 prince PRN BID PRN TP calluses; Start 04/24/17 at 23:30 Vitamin E 200 unit DAILY PO Last administered on 04/26/17 07:59; Start 04/25/17 at 09:00 Ketotifen Fumarate (Zaditor) 1 drop BID OU Last administered on 04/26/17 19:46 ; Start 04/25/17 at 09:00 Zinc Oxide (Desitin Diaper Rash 40%) 1 prince PRN BID PRN TP DIAPER RASH; Start at 23:45 Cetirizine HCl (ZyrTEC) 10 mg DAILY PO Last administered on 04/26/17 07:58; Start 04/25/17 at 09:00 Fluocinonide (Lidex-E) 1 prince PRN TID PRN TP FACIAL RASH; Start 04/25/17 at 09:00 Pantoprazole Sodium (Protonix) 40 mg DAILYAC PO Last administered on 04/26/17 07:57; Start 04/25/17 at 07:30 Artificial Tears (Artificial Tears) 2 drop PRN TID PRN OU DRY EYE; Start at 23:45 Losartan Potassium (Cozaar) 100 mg DAILY PO Last administered on 04/26/17 07:59 ; Start 04/25/17 at 09:00 Acetaminophen (Tylenol) 650 mg PRN Q6HRS PRN PO PAIN / TEMP; Start 04/25/17 at 17:34 Risperidone (RisperDAL) 0.25 mg QHS PO Last administered on 04/26/17t 19:46; Start 04/26/17 at 21:00 Active Scripts Active Reported Vanicream Diaper Rash Ointment (Dimethicone/Zinc Oxide) 70 Gm Oint...g. 1 Prince TP BID PRN Vitamin E 200 Unit Capsule 200 Unit PO DAILY Diovan (Valsartan) 160 Mg Tablet 160 Mg PO DAILY Ureacin-10 (Urea) 236.56 Ml Lotion 1 Prince TP BID PRN Tylenol (Acetaminophen) 325 Mg Tablet 650 Mg PO PRN Q4HRS PRN Restoril (Temazepam) 15 Mg Capsule 15 Mg PO HS PRN Systane 0.3-0.4% Eye Drops (Propylene Glycol/Peg 400) 15 Ml Drops 2 Drop OP TID PRN Simvastatin 20 Mg Tablet 20 Mg PO HS Seroquel (Quetiapine Fumarate) 50 Mg Tablet 50 Mg PO DAILYWSUP Zoloft (Sertraline Hcl) 50 Mg Tablet 50 Mg PO DAILY Oyster Shell 500 Mg + Vit D Tb (Calcium Carbonate/Vitamin D3) 1 Each Tablet 1 Tab PO DAILY Azelastine Hcl 6 Ml Drops 1 Drop OP PRN Q8HRS PRN Omeprazole 20 Mg Capsule.dr 20 Mg PO DAILY Nystatin-Triamcinolone Cream (Nystatin/Triamcin) 15 Gm Cream..g. 1 Applic TP DAILY Alum-Mag Hydroxide-Simeth Liq (Mag Hydrox/Al Hydrox/Simeth) 360 Ml Oral.susp 30 Ml PO PRN Q4HRS Loratadine 10 Mg Tablet 10 Mg PO DAILY Loperamide (Loperamide Hcl) 2 Mg Tablet 4 Mg PO PRN MDD 8 tabs/24 hours Elocon (Mometasone Furoate) 15 Gm Oint...g. 1 Prince TP PRN DAILY PRN Baclofen 10 Mg Tablet 10 Mg PO TID Aspir-Low (Aspirin) 81 Mg Tablet. 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
--- NOTE | 2017-04-26 22:45 | NUR ---
Behavior Intervention Response and Plan: BIRP Note: Behavior: Assumed Care of patient, patient located in Hallway at shift change. Patient exhibited the following behavior Wandering, Disorganized, Compliant. Brief assessment on rounds of vital signs, medication needs, lab studies, and pain. Treatment plan problems 1-2. Intervention: Patient assessed and the following interventions initiated safety checks 15 Minute Checks Cognitive Assessment , Head to toe Assessment , Medications. Response: After interactions and interventions patient responded in the following manner, Disorganized , Wandering ,Cooperative. Continue to assess behaviors and condition will continue to monitor throughout the shift as needed. Patient educated on ADL's, and hand hygiene. 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 Continue to assess patient for changes in above assessment. Monitor for medication needs, pain, and safety concerns. Hourly rounding performed to ensure safe environment.
[2017-04-27 06:17] VITALS: BP 167/84
[2017-04-27] MEDS: amLODIPine BESYLATE 5 MG TABLET PO SCH (09:00)
[2017-04-27] MEDS: BACLOFEN 10 MG TABLET PO SCH ×3 (09:31→19:25)
[2017-04-27] MEDS: CALCIUM CARB/VIT D3 500/200 TABLET PO SCH (09:31)
[2017-04-27] MEDS: CETIRIZINE HCL 10 MG TABLET PO SCH (09:31)
[2017-04-27] MEDS: SERTRALINE 50 MG TABLET. PO SCH (09:31)
[2017-04-27] MEDS: LOSARTAN 50 MG TABLET. PO SCH (09:31)
[2017-04-27] MEDS: PANTOPRAZOLE 40 MG TABLET. PO SCH (09:32)
[2017-04-27] MEDS: KETOTIFEN FUMARATE 0.025% OPHT SOLUTION BOTTLE. OU SCH ×2 (09:37→19:26)
[2017-04-27] MEDS: VITAMIN E 200 UNIT CAPSULE. PO SCH (09:37)
[2017-04-27] MEDS: NYSTATIN/TRIAMCIN TOPICAL CREAM 15GM TUBE. TP SCH (09:40)
--- NOTE | 2017-04-27 12:35 | NUR ---
Behavior Intervention Response and Plan: BIRP Note: Behavior: Assumed Care of patient, patient located in Patient Room at shift change. Patient exhibited the following behavior Withdrawn, Drowsy, Disorganized. Brief assessment on rounds of vital signs, medication needs, lab studies, and pain. Treatment plan problems . Intervention: Patient assessed and the following interventions initiated safety checks 15 Minute Checks Cognitive Assessment , Head to toe Assessment , Medications. Response: After interactions and interventions patient responded in the following manner, Calm , Withdrawn ,Drowsy. Continue to assess behaviors and condition will continue to monitor throughout the shift as needed. Patient educated on ADL's, and hand hygiene. Plan: Continue to monitor Master Treatment Plan for patient's progress toward short term goals of Decreased Agitation, Decreased Anxiety, mcc goals to return to previous living setting vs placement. Continue to assess patient for changes in above assessment. Monitor for medication needs, pain, and safety concerns. Hourly rounding performed to ensure safe environment.
[2017-04-27 16:28] VITALS: BP 153/76
[2017-04-27] MEDS: ATORVASTATIN CALCIUM 10 MG TABLET. PO SCH (19:25)
[2017-04-27] MEDS: risperiDONE 0.25 MG TABLET. PO SCH (19:25)
--- NOTE | 2017-04-27 20:45 | PN ---
DATE: 04/26/2017 This is a late entry for 04/26/2017 and covers elements not covered in my initial note of 04/26/2017. SUBJECTIVE: The patient was seen individually evening of 04/26/2017. She remains anxious, restless, irritable per nursing staff and has been "snarky" per nursing staff all day. She believes people are out to get her. She was resistive to taking medications, appears confused, rambling in her speech, muttering, sarcastic, all per nursing report. REVIEW OF SYSTEMS: Ambulation impaired with a walker. No CV, , pulmonary, eye system symptoms on review. MENTAL STATUS EXAM: Oriented to herself and situation at times. Speech coherent, rapid. Associations somewhat loose. Attention span short, language function intact. Mood and affect remain somewhat labile. LABORATORY DATA: Reviewed. IMPRESSION: Unchanged from initial note. Psychotic disorder, unspecified; major depressive disorder with psychotic features; major neurocognitive disorder, Alzheimer, vascular with depression, delusions; anxiety disorder, unspecified; impulse control disorder, unspecified. PLAN: Change Seroquel to Risperdal 0.25 mg at bedtime. Continue Zoloft 50 mg a day, Restoril 15 mg at bedtime. She slept 8-1/2 hours previous night. Adjust further as clinically indicated. MAN Anthony DALY MD DR: MONIKA/tomi JOB#: [id number] / [id number]
--- NOTE | 2017-04-27 21:00 | NUR ---
Behavior Intervention Response and Plan: BIRP Note: Behavior: Assumed Care of patient, patient located in Day Room at shift change. Patient exhibited the following behavior Calm, Disorganized, Restless. Brief assessment on rounds of vital signs, medication needs, lab studies, and pain. Treatment plan problems . Intervention: Patient assessed and the following interventions initiated safety checks 15 Minute Checks Cognitive Assessment , Head to toe Assessment , Medications. Response: After interactions and interventions patient responded in the following manner, Able to Focus on Task , Compliant ,Cooperative. Continue to assess behaviors and condition will continue to monitor throughout the shift as needed. Patient educated on ADL's, and hand hygiene. Plan: Continue to monitor Master Treatment Plan for patient's progress toward short term goals of Medication Compliance, Decreased Anxiety, intermediate goals to return to previous living setting vs placement. Continue to assess patient for changes in above assessment. Monitor for medication needs, pain, and safety concerns. Hourly rounding performed to ensure safe environment.
--- NOTE | 2017-04-27 22:15 | PDOC ---
Exam Nito Demential Exam: Nito Note: Please also refer to the separate dictated note~for this date of service dictated separately.~Patient seen individually. Discussed the patient with Nursing staff reviewed the chart.~Reviewed interim history and current functioning. Reviewed vital signs,~Labs/ Radiology~and current medications noted below. Continue current treatment with the changes noted in the dictated addendum note Assessment: Vital Signs: Vital Signs Date Time Temp Pulse Resp B/P (MAP) Pulse Ox O2 Delivery O2 Flow Rate FiO2 04/27/17 16:28 97.8 67 20 153/76 (101) 94 04/24/17 22:26 Room Air I&O Intake and Output 04/27/17 07:00 Intake Total 840 ml Balance 840 ml Intake Oral 840 ml Current Medications: Meds: Current Medications Acetaminophen (Tylenol) 650 mg PRN Q6HRS PRN PO PAIN / TEMP; Start 04/24/17 at 23:15; Stop 04/25/17 at 17:34; Status DC Multi-Ingredient Ointment (Analgesic Lawrence) 1 prince PRN QID PRN TP MUSCLE PAIN; Start 04/24/17 at 23:15 Al Hydroxide/Mg Hydroxide (Mylanta Plus Xs) 15 ml PRN AFTMEALHC PRN PO DYSPEPSIA; Start 04/24/17 at 23:15 Magnesium Hydroxide (Milk Of Magnesia) 2,400 mg PRN QHS PRN PO CONSTIPATION; Start 04/24/17 at 23:15 Quetiapine Fumarate (SEROquel) 50 mg DAILYWSUP PO Last administered on 17:01; Start 04/25/17 at 17:00; Stop 04/26/17 at 18:19; Status DC Sertraline HCl (Zoloft) 50 mg DAILY PO Last administered on 04/27/17 09:31; Start 04/25/17 at 09:00 Amlodipine Besylate (Norvasc) 5 mg DAILY PO Last administered on 04/27/17 09:00 ; Start 04/25/17 at 09:00 Aspirin (Aspirin Enteric Coated) 81 mg DAILY PO Last administered on 04/26/17 07:57; Start 04/25/17 at 09:00; Stop 04/26/17 at 17:27; Status DC Baclofen (Lioresal) 10 mg TID PO Last administered on 04/27/17 19:25; Start 04/25/17 at 09:00 Calcium/Vitamin D (Oscal D 500mg/ 200uts) 1 tab DAILY PO Last administered on 09:31; Start 04/25/17 at 09:00 Nystatin/ Triamcinolone Acetonide (Mycolog Ii) 1 prince DAILY TP Last administered on 04/27/17 09:40; Start 04/25/17 at 09:00 Atorvastatin Calcium (Lipitor) 10 mg QHS PO Last administered on 04/27/17 19:25 ; Start 04/25/17 at 21:00 Temazepam (Restoril) 15 mg PRN QHS PRN PO INSOMNIA; Start 04/24/17 at 23:30 Urea (Aqua Care) 1 prince PRN BID PRN TP calluses; Start 04/24/17 at 23:30 Vitamin E 200 unit DAILY PO Last administered on 04/27/17 09:37; Start 04/25/17 at 09:00 Ketotifen Fumarate (Zaditor) 1 drop BID OU Last administered on 04/27/17 19:26 ; Start 04/25/17 at 09:00 Zinc Oxide (Desitin Diaper Rash 40%) 1 prince PRN BID PRN TP DIAPER RASH Last administered on 04/27/17 09:38; Start 04/24/17 at 23:45 Cetirizine HCl (ZyrTEC) 10 mg DAILY PO Last administered on 04/27/17 09:31; Start 04/25/17 at 09:00 Fluocinonide (Lidex-E) 1 prince PRN TID PRN TP FACIAL RASH; Start 04/25/17 at 09:00 Pantoprazole Sodium (Protonix) 40 mg DAILYAC PO Last administered on 04/27/17 09:32; Start 04/25/17 at 07:30 Artificial Tears (Artificial Tears) 2 drop PRN TID PRN OU DRY EYE; Start at 23:45 Losartan Potassium (Cozaar) 100 mg DAILY PO Last administered on 04/27/17 09:31 ; Start 04/25/17 at 09:00 Acetaminophen (Tylenol) 650 mg PRN Q6HRS PRN PO PAIN / TEMP Last administered on 04/27/17 11:44; Start 04/25/17 at 17:34 Risperidone (RisperDAL) 0.25 mg QHS PO Last administered on 04/27/17 19:25; Start 04/26/17 at 21:00 Olanzapine (ZyPREXA ZYDIS) 2.5 mg PRN Q2HR PRN PO PSYCHOSIS; Start 04/26/17 at 20:15 Active Scripts Active Reported Vanicream Diaper Rash Ointment (Dimethicone/Zinc Oxide) 70 Gm Oint...g. 1 Prince TP BID PRN Vitamin E 200 Unit Capsule 200 Unit PO DAILY Diovan (Valsartan) 160 Mg Tablet 160 Mg PO DAILY Ureacin-10 (Urea) 236.56 Ml Lotion 1 Prince TP BID PRN Tylenol (Acetaminophen) 325 Mg Tablet 650 Mg PO PRN Q4HRS PRN Restoril (Temazepam) 15 Mg Capsule 15 Mg PO HS PRN Systane 0.3-0.4% Eye Drops (Propylene Glycol/Peg 400) 15 Ml Drops 2 Drop OP TID PRN Simvastatin 20 Mg Tablet 20 Mg PO HS Seroquel (Quetiapine Fumarate) 50 Mg Tablet 50 Mg PO DAILYWSUP Zoloft (Sertraline Hcl) 50 Mg Tablet 50 Mg PO DAILY Oyster Shell 500 Mg + Vit D Tb (Calcium Carbonate/Vitamin D3) 1 Each Tablet 1 Tab PO DAILY Azelastine Hcl 6 Ml Drops 1 Drop OP PRN Q8HRS PRN Omeprazole 20 Mg Capsule.dr 20 Mg PO DAILY Nystatin-Triamcinolone Cream (Nystatin/Triamcin) 15 Gm Cream..g. 1 Applic TP DAILY Alum-Mag Hydroxide-Simeth Liq (Mag Hydrox/Al Hydrox/Simeth) 360 Ml Oral.susp 30 Ml PO PRN Q4HRS Loratadine 10 Mg Tablet 10 Mg PO DAILY Loperamide (Loperamide Hcl) 2 Mg Tablet 4 Mg PO PRN MDD 8 tabs/24 hours Elocon (Mometasone Furoate) 15 Gm Oint...g. 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
[2017-04-28 06:17] VITALS: BP 185/92
[2017-04-28] MEDS: SERTRALINE 50 MG TABLET. PO SCH (08:35)
[2017-04-28] MEDS: LOSARTAN 50 MG TABLET. PO SCH (08:35)
[2017-04-28] MEDS: BACLOFEN 10 MG TABLET PO SCH ×3 (08:35→20:15)
[2017-04-28] MEDS: PANTOPRAZOLE 40 MG TABLET. PO SCH (08:36)
[2017-04-28] MEDS: CETIRIZINE HCL 10 MG TABLET PO SCH (08:36)
[2017-04-28] MEDS: CALCIUM CARB/VIT D3 500/200 TABLET PO SCH (08:36)
[2017-04-28] MEDS: amLODIPine BESYLATE 5 MG TABLET PO SCH (08:38)
[2017-04-28] MEDS: VITAMIN E 200 UNIT CAPSULE. PO SCH (09:00)
[2017-04-28 09:12] LABS: ALBUMIN 4.1 g/dL (3.4-5.0); ALBUMIN/GLOBULIN RATIO 1.1 (1.0-1.7); CALCIUM 9.6 mg/dL (8.5-10.1); CREATININE 1.1 mg/dL (0.6-1.0); POTASSIUM 4.4 mmol/L (3.5-5.1); TOTAL BILIRUBIN 0.6 mg/dL (0.2-1.0); TOTAL PROTEIN 7.8 g/dL (6.4-8.2)
--- NOTE | 2017-04-28 11:22 | NUR ---
Behavior Intervention Response and Plan: BIRP Note: Behavior: Assumed Care of patient, patient located in Dining Room at shift change. Patient exhibited the following behavior Calm, Disorganized, Compliant. Brief assessment on rounds of vital signs, medication needs, lab studies, and pain. Treatment plan problems . Intervention: Patient assessed and the following interventions initiated safety checks 15 Minute Checks Cognitive Assessment , Head to toe Assessment , Medications. Response: After interactions and interventions patient responded in the following manner, Restless , Compliant ,Disorganized. Continue to assess behaviors and condition will continue to monitor throughout the shift as needed. Patient educated on ADL's, and hand hygiene. Plan: Continue to monitor Master Treatment Plan for patient's progress toward short term goals of Decreased Agitation, Improved Mood, fpc goals to return to previous living setting vs placement. Continue to assess patient for changes in above assessment. Monitor for medication needs, pain, and safety concerns. Hourly rounding performed to ensure safe environment.
[2017-04-28] MEDS: KETOTIFEN FUMARATE 0.025% OPHT SOLUTION BOTTLE. OU SCH ×2 (13:59→21:09)
[2017-04-28] MEDS: NYSTATIN/TRIAMCIN TOPICAL CREAM 15GM TUBE. TP SCH (13:59)
[2017-04-28 15:50] VITALS: BP 169/74
--- NOTE | 2017-04-28 16:11 | PN ---
DATE: 04/27/2017 PSYCHIATRIC PROGRESS NOTE This late entry 04/27/2017 covers elements not covered in my initial note of 04/27/2017. SUBJECTIVE: The patient was seen individually evening of 04/27/2017. The patient has had very poor appetite, eaten nothing most of the day, somewhat withdrawn, delusional, talks about her ex- being a bad person. We will check a comprehensive metabolic profile morning of 04/28/2017. REVIEW OF SYSTEMS: Ambulation impaired, complains of being tired, in a wheelchair. No CV, , pulmonary, eye systems symptoms on review. MENTAL STATUS EXAMINATION: Oriented to herself and at times to situation. Speech moderate latency, often responses monosyllabic. Abstraction fair. Computation impaired. Memory is impaired. No active suicidal or homicidal ideation. LABORATORY DATA: Reviewed. IMPRESSION: Psychotic disorder, unspecified; major depressive disorder with psychotic features; mild cognitive impairment versus major neurocognitive disorder, Alzheimer, vascular with depression and delusion. PLAN: Maintain Risperdal 0.25 mg at bedtime, Restoril 15 mg at bedtime, Zoloft is 50 mg a day. We may need to increase this or consider augmentation or single agent with Wellbutrin. ELIZABETH DALY MD DR: MONIKA/tomi JOB#: [id number] / [id number]
[2017-04-28] MEDS ORDERED: NYSTATIN TOPICAL POWDER 15GM BOTTLE. TP ONE (16:19)
[2017-04-28 16:54] LABS: BACTERIA,URINE 0 /HPF (0-FEW); BILIRUBIN,URINE NEG (NEG); CLARITY,URINE CLEAR; COLOR,URINE STRAW; GLUCOSE,URINE NEG (NEG); NITRITE,URINE NEG (NEG); RBC,URINE 0 /HPF (0-2); SQUAMOUS EPITHELIAL CELL,UR OCC /LPF; UROBILINOGEN,URINE 0.2 mg/dL (0.2 mg/dL); WBC,URINE OCC /HPF (0-4)
--- NOTE | 2017-04-28 19:49 | PDOC ---
Exam Nito Demential Exam: Nito Note: Please also refer to the separate dictated note~for this date of service dictated separately.~Patient seen individually. Discussed the patient with Nursing staff reviewed the chart.~Reviewed interim history and current functioning. Reviewed vital signs,~Labs/ Radiology~and current medications noted below. Continue current treatment with the changes noted in the dictated addendum note Assessment: Vital Signs: Vital Signs Date Time Temp Pulse Resp B/P (MAP) Pulse Ox O2 Delivery O2 Flow Rate FiO2 04/28/17 15:50 99.2 76 21 169/74 (105) 96 04/24/17 22:26 Room Air I&O Intake and Output 04/28/17 07:00 Intake Total 240 ml Balance 240 ml Intake Oral 240 ml Labs: Laboratory Tests Test 04/28/17 06:25 04/28/17 16:35 Sodium Level 140 mmol/L (136-145) Potassium Level 4.4 mmol/L (3.5-5.1) Chloride Level 102 mmol/L (98-107) Carbon Dioxide Level 29 mmol/L (21-32) Anion Gap 9 (6-14) Blood Urea Nitrogen 29 mg/dL (7-20) H Creatinine 1.1 mg/dL (0.6-1.0) H Estimated GFR (Cockcroft-Gault) 47.0 BUN/Creatinine Ratio 26 (6-20) H Glucose Level 108 mg/dL (70-99) H Calcium Level 9.6 mg/dL (8.5-10.1) Total Bilirubin 0.6 mg/dL (0.2-1.0) Aspartate Amino Transferase (AST) 28 U/L (15-37) Alanine Aminotransferase (ALT) 29 U/L (14-59) Alkaline Phosphatase 99 U/L (46-116) Total Protein 7.8 g/dL (6.4-8.2) Albumin 4.1 g/dL (3.4-5.0) Albumin/Globulin Ratio 1.1 (1.0-1.7) Urine Collection Type Unknown Urine Color Straw Urine Clarity Clear Urine pH 6.0 Urine Specific [place] <=1.005 Urine Protein Neg (NEG-TRACE) Urine Glucose (UA) Neg mg/dL (NEG) Urine Ketones (Stick) Neg mg/dL (NEG) Urine Blood Trace (NEG) Urine Nitrite Neg (NEG) Urine Bilirubin Neg (NEG) Urine Urobilinogen Dipstick 0.2 mg/dL (0.2 mg/dL) Urine Leukocyte Esterase Neg (NEG) Urine RBC 0 /HPF (0-2) Urine WBC Occ /HPF (0-4) Urine Squamous Epithelial Cells Occ /LPF Urine Bacteria 0 /HPF (0-FEW) Current Medications: Meds: Current Medications Acetaminophen (Tylenol) 650 mg PRN Q6HRS PRN PO PAIN / TEMP; Start 04/24/17 at 23:15; Stop 04/25/17 at 17:34; Status DC Multi-Ingredient Ointment (Analgesic Halma) 1 prince PRN QID PRN TP MUSCLE PAIN; Start 04/24/17 at 23:15 Al Hydroxide/Mg Hydroxide (Mylanta Plus Xs) 15 ml PRN AFTMEALHC PRN PO DYSPEPSIA; Start 04/24/17 at 23:15 Magnesium Hydroxide (Milk Of Magnesia) 2,400 mg PRN QHS PRN PO CONSTIPATION; Start 04/24/17 at 23:15 Quetiapine Fumarate (SEROquel) 50 mg DAILYWSUP PO Last administered on 17:01; Start 04/25/17 at 17:00; Stop 04/26/17 at 18:19; Status DC Sertraline HCl (Zoloft) 50 mg DAILY PO Last administered on 04/28/17 08:35; Start 04/25/17 at 09:00 Amlodipine Besylate (Norvasc) 5 mg DAILY PO Last administered on 04/28/17 08:38 ; Start 04/25/17 at 09:00 Aspirin (Aspirin Enteric Coated) 81 mg DAILY PO Last administered on 04/26/17 07:57; Start 04/25/17 at 09:00; Stop 04/26/17 at 17:27; Status DC Baclofen (Lioresal) 10 mg TID PO Last administered on 04/28/17 14:22; Start 04/25/17 at 09:00 Calcium/Vitamin D (Oscal D 500mg/ 200uts) 1 tab DAILY PO Last administered on 08:36; Start 04/25/17 at 09:00 Nystatin/ Triamcinolone Acetonide (Mycolog Ii) 1 prince DAILY TP Last administered on 04/28/17 13:59; Start 04/25/17 at 09:00 Atorvastatin Calcium (Lipitor) 10 mg QHS PO Last administered on 04/27/17 19:25 ; Start 04/25/17 at 21:00 Temazepam (Restoril) 15 mg PRN QHS PRN PO INSOMNIA; Start 04/24/17 at 23:30 Urea (Aqua Care) 1 prince PRN BID PRN TP calluses; Start 04/24/17 at 23:30 Vitamin E 200 unit DAILY PO Last administered on 04/27/17 09:37; Start 04/25/17 at 09:00 Ketotifen Fumarate (Zaditor) 1 drop BID OU Last administered on 04/27/17 19:26 ; Start 04/25/17 at 09:00 Zinc Oxide (Desitin Diaper Rash 40%) 1 prince PRN BID PRN TP DIAPER RASH Last administered on 04/27/17 09:38; Start 04/24/17 at 23:45 Cetirizine HCl (ZyrTEC) 10 mg DAILY PO Last administered on 04/28/17 08:36; Start 04/25/17 at 09:00 Fluocinonide (Lidex-E) 1 prince PRN TID PRN TP FACIAL RASH; Start 04/25/17 at 09:00 Pantoprazole Sodium (Protonix) 40 mg DAILYAC PO Last administered on 04/28/17 08:36; Start 04/25/17 at 07:30 Artificial Tears (Artificial Tears) 2 drop PRN TID PRN OU DRY EYE; Start at 23:45 Losartan Potassium (Cozaar) 100 mg DAILY PO Last administered on 04/28/17 08:35 ; Start 04/25/17 at 09:00 Acetaminophen (Tylenol) 650 mg PRN Q6HRS PRN PO PAIN / TEMP Last administered on 04/27/17 11:44; Start 04/25/17 at 17:34 Risperidone (RisperDAL) 0.25 mg QHS PO Last administered on 04/27/17 19:25; Start 04/26/17 at 21:00; Stop 04/28/17 at 18:50; Status DC Olanzapine (ZyPREXA ZYDIS) 2.5 mg PRN Q2HR PRN PO PSYCHOSIS; Start 04/26/17 at 20:15 Vitamin D (Vitamin D3) 50,000 unit WEEKLY PO ; Start 04/29/17 at 09:00 Nystatin (Nystop) 15 prince STK-MED ONCE TP Last administered on 04/28/17t 16:19; Start 04/28/17 at 16:19; Stop 04/28/17 at 16:20; Status DC Active Scripts Active Reported Vanicream Diaper Rash Ointment (Dimethicone/Zinc Oxide) 70 Gm Oint...g. 1 Prince TP BID PRN Vitamin E 200 Unit Capsule 200 Unit PO DAILY Diovan (Valsartan) 160 Mg Tablet 160 Mg PO DAILY Ureacin-10 (Urea) 236.56 Ml Lotion 1 Prince TP BID PRN Tylenol (Acetaminophen) 325 Mg Tablet 650 Mg PO PRN Q4HRS PRN Restoril (Temazepam) 15 Mg Capsule 15 Mg PO HS PRN Systane 0.3-0.4% Eye Drops (Propylene Glycol/Peg 400) 15 Ml Drops 2 Drop OP TID PRN Simvastatin 20 Mg Tablet 20 Mg PO HS Seroquel (Quetiapine Fumarate) 50 Mg Tablet 50 Mg PO DAILYWSUP Zoloft (Sertraline Hcl) 50 Mg Tablet 50 Mg PO DAILY Oyster Shell 500 Mg + Vit D Tb (Calcium Carbonate/Vitamin D3) 1 Each Tablet 1 Tab PO DAILY Azelastine Hcl 6 Ml Drops 1 Drop OP PRN Q8HRS PRN Omeprazole 20 Mg Capsule.dr 20 Mg PO DAILY Nystatin-Triamcinolone Cream (Nystatin/Triamcin) 15 Gm Cream..g. 1 Applic TP DAILY Alum-Mag Hydroxide-Simeth Liq (Mag Hydrox/Al Hydrox/Simeth) 360 Ml Oral.susp 30 Ml PO PRN Q4HRS Loratadine 10 Mg Tablet 10 Mg PO DAILY Loperamide (Loperamide Hcl) 2 Mg Tablet 4 Mg PO PRN MDD 8 tabs/24 hours Elocon (Mometasone Furoate) 15 Gm Oint...g. 1 Prince TP PRN DAILY PRN Baclofen 10 Mg Tablet 10 Mg PO TID Aspir-Low (Aspirin) 81 Mg Tablet. 81 Mg PO Amlodipine Besylate 5 Mg Tablet 5 Mg PO DAILY Diagnosis: Problems: (1) Altered mental status (2) Anxiety disorder (3) Impulse control disorder (4) Psychosis, atypical (5) Psychotic depression (6) Dementia in Alzheimer's disease with delusions (7) Dementia, vascular, with delusions ELIZABETH DALY MD Apr 28, 2017 19:49
[2017-04-28] MEDS: ATORVASTATIN CALCIUM 10 MG TABLET. PO SCH (20:14)
--- NOTE | 2017-04-28 22:27 | NUR ---
Behavior Intervention Response and Plan: BIRP Note: Behavior: Assumed Care of patient, patient located in Day Room at shift change. Patient exhibited the following behavior Disorganized, Resistive, Defensive. Brief assessment on rounds of vital signs, medication needs, lab studies, and pain. Treatment plan problems :1-2 Intervention: Patient assessed and the following interventions initiated safety checks 15 Minute Checks Cognitive Assessment , Head to toe Assessment , Medications. Response: After interactions and interventions patient responded in the following manner, Disorganized , Restless ,Resistive. Continue to assess behaviors and condition will continue to monitor throughout the shift as needed. Patient educated on ADL's, and hand hygiene. Pt not answering questions & noted to have abnormal movements; Dr Contreras aware & d/c'd the risperdal. Plan: Continue to monitor Master Treatment Plan for patient's progress toward short term goals of Decreased Anxiety, Improved Mood, retirement goals to return to previous living setting vs placement. Continue to assess patient for changes in above assessment. Monitor for medication needs, pain, and safety concerns. Hourly rounding performed to ensure safe environment.
--- NOTE | 2017-04-28 22:29 | PN ---
DATE: 04/28/2017 PSYCHIATRIC PROGRESS NOTE SUBJECTIVE: The patient was seen on rounds this evening of 04/28/2017. This note covers elements not covered in my initial note of 04/28/2017. Per nursing report, the patient has appeared more confused having some mild tremors as well. She is dehydrated with poor oral intake. REVIEW OF SYSTEMS: Ambulation impaired. No CV, , pulmonary, eye systems symptoms on review. Reliability poor. MENTAL STATUS EXAMINATION: Oriented to herself and situation. Speech moderate latency, often responses monosyllabic. Abstraction fair, computation impaired, language function intact. Memory is impaired. LABORATORY DATA: UA is negative. IMPRESSION: Psychotic disorder, unspecified; major depressive disorder with psychotic features; cognitive disorder, unspecified versus major neurocognitive disorder, Alzheimer, vascular with depression, delusions. Rest unchanged. PLAN: Continue current psychotropic. Check CBC, CMP in the morning. Maintain Zoloft 50 mg a day, Risperdal 0.25 mg at bedtime. Nursing staff some of her tremors could be attributed to this and we have stopped the Risperdal. Adjust further as clinically indicated. ELIZABETH DALY MD DR: MONIKA/tomi JOB#: [id number] / [id number]
[2017-04-29 06:03] VITALS: BP 177/68
[2017-04-29] MEDS: BACLOFEN 10 MG TABLET PO SCH ×3 (08:26→20:15)
[2017-04-29] MEDS: SERTRALINE 50 MG TABLET. PO SCH (08:26)
[2017-04-29] MEDS: PANTOPRAZOLE 40 MG TABLET. PO SCH (08:26)
[2017-04-29] MEDS: CALCIUM CARB/VIT D3 500/200 TABLET PO SCH (08:26)
[2017-04-29] MEDS: CETIRIZINE HCL 10 MG TABLET PO SCH (08:27)
[2017-04-29] MEDS: LOSARTAN 50 MG TABLET. PO SCH (08:27)
[2017-04-29] MEDS: VITAMIN E 200 UNIT CAPSULE. PO SCH (08:27)
[2017-04-29] MEDS: NYSTATIN/TRIAMCIN TOPICAL CREAM 15GM TUBE. TP SCH (08:29)
[2017-04-29] MEDS: amLODIPine BESYLATE 5 MG TABLET PO SCH (08:29)
[2017-04-29] MEDS: KETOTIFEN FUMARATE 0.025% OPHT SOLUTION BOTTLE. OU SCH ×2 (08:29→20:16)
[2017-04-29] MEDS ORDERED: CHOLECALCIFEROL (VITAMIN D3) 50,000 UNIT CAPSULE PO SCH (09:00)
--- NOTE | 2017-04-29 09:10 | NUR ---
THERAPEUTIC RECREATION GROUP NOTE TITLE :Aromatherapy, Waterfall Scenery, Hand Massages ACTIVITY : Relaxation GOAL : Decrease stress, elevate mood, increase concentration/attention, encourage awareness DURATION : 60 minutes RESPONSE : No participation
--- NOTE | 2017-04-29 10:52 | NUR ---
Abnormal jerking movements noted on pt. Per report, Risperdal had been started and now discontinued. Pt continues to not speak and is using a wheelchair currently, previously pt had been ambulating with walker.
--- NOTE | 2017-04-29 11:25 | NUR ---
Dr. Duncan notified of consult re: abnormal movements
--- NOTE | 2017-04-29 11:30 | NUR ---
THERAPEUTIC RECREATION GROUP NOTE TITLE :Movement to Music: Flexibility ACTIVITY : Movement/ Exercise GOAL : Increase morale, attention, flexibility. Decrease stress/anxiety. DURATION : 30 Minutes RESPONSE : No participation
--- NOTE | 2017-04-29 11:41 | NUR ---
LOGAN received phone call from Pt's dtr, Marisa, regarding several concerns about medications and Pt's overall state of being. Marisa also included the concerns in an email for SW to pass along to Dr. Contreras. LOGAN will leave copy of the email for Dr. Contreras to follow up w/a phone call during tonight's rounds. EMAIL FROM MARISA TO LOGAN: Today, I was horrified at her condition. She was in a wheelchair, non-responsive, shaking, would barely eat, incontinent. It was terrifying. Abla, her nurse said that the doctor had put her on Risperdal, replacing the Seroquel she had been on. I had expressed concerns about the Seroquel (once I knew what it was) with everyone from the beginning, including folks at [facility] where mom lives, but I didn't know what this was until a few weeks ago, and it seems she's been on it for at least a year, maybe longer? Something to confirm with [facility]? I want to be completely clear, my mother is not, nor has she been in Dementia - at least not yet. She was admitted to [facility] in 2010 with UTI and the after affects of that. She recovered. She has been living independently, except for support with food prep, bathing and medication disbursement. She does her laundry, walks all over, plays games, reads, does art, etc. These delirium episodes just started about two months ago. She was in the middle of one when I brought her last week, however, just on April 19, on the heels of rehab at [facility] after a hospital visit in [place] where she was diagnosed with UTI, she was sent back to her assisted living apartment. She was seemingly fine, then she had another episode, and then, finally, one on Apr 24, the day I brought her over. I want her taken off the antipsychotics entirely to see if it is possible that is what is causing the behavior. I know it might not be, but from all I can see, it has great potential to cause, not cure the symptoms mom is suffering from. Alba assured me she would be coming off of the Risperdal today, and I said I wanted her to not take anything (antipsychotics), so we could see if it improved her condition. I am sending this ahead to be sure to document my concerns and wishes. No one, at [facility], or anywhere else ever said, "we are putting your mom on an antipsychotic drug." I am ashamed to admit I didn't even know she was. As her daughter, I just have to try everything. I never dreamt they would just replace one antipsychotic with another. I assumed that she would be taken off of it, rather than put on another. So please, no more Risperdal - ever! She was a mess!
--- NOTE | 2017-04-29 14:23 | NUR ---
Group Note [facility] Group Type: "Let it Go" Start Time: 1:30pm End Time: 2:00pm Problem: Agitation Purpose: Express Feelings Level of Participation: did not participate, only observed at table (Pt. has not spoken to any person all day). Behaviors or Symptoms Observed: decreased social participation Interventions: Problem Solving Response: Pt. sat at table w/the group, would make eye contact w/this SW and peers speaking, however, did not verbally communicate the entire time. Plan: continue to monitor
--- NOTE | 2017-04-29 14:30 | NUR ---
Attempted to meet and complete Activity Therapy Assessment; however, Pt. was unable to respond to any questions the entire day. SUPERVISOR FRONT will try again tomorrow.
--- NOTE | 2017-04-29 15:00 | NUR ---
THERAPEUTIC RECREATION GROUP NOTE TITLE :Comprehension: The Necklace ACTIVITY : Cognitive Stimulation GOAL : Maintain or improve cognitive functioning and memory. DURATION : 60 Minutes RESPONSE : Minimal participation. Pt. was with the group the entire time, alert and staring about others; however, she was unable to express herself or show emotions.
[2017-04-29 16:05] VITALS: BP 148/67
--- NOTE | 2017-04-29 16:17 | NUR ---
SW met w/Pt's dtr and son-in-law to further discuss concerns w/Pt's current functional status and medications. SW reported the email sent earlier in the day was printed and placed in Dr. Contreras's mailbox for follow up this evening during rounds. SW also passed along specific questions regarding medications to nursing to be addressed during visiting hours.
--- NOTE | 2017-04-29 16:20 | NUR ---
wound care patient has family with her at this time. wound care will f/u tomorrow.
--- NOTE | 2017-04-29 17:32 | NUR ---
Swallow study ordered d/t pt coughing and choking while drinking thin liquids. Pt placed on pureed diet with nectar thick liquids until swallow study is completed.
--- NOTE | 2017-04-29 19:16 | NUR ---
This RN notified that pt had not voided since her shower this am. Bladder scan done and measured >350ml. Dr. Salmeron notified and received orders to straight cath x1. 400ml obtained. Pt tolerated well. Will continue to monitor.
--- NOTE | 2017-04-29 20:00 | PDOC ---
Exam Nito Demential Exam: Nito Note: Please also refer to the separate dictated note~for this date of service dictated separately.~Patient seen individually. Discussed the patient with Nursing staff reviewed the chart.~Reviewed interim history and current functioning. Reviewed vital signs,~Labs/ Radiology~and current medications noted below. Continue current treatment with the changes noted in the dictated addendum note Assessment: Vital Signs: Vital Signs Date Time Temp Pulse Resp B/P (MAP) Pulse Ox O2 Delivery O2 Flow Rate FiO2 04/29/17 16:05 96.7 86 18 148/67 (94) 97 Room Air I&O Intake and Output 04/29/17 07:00 Intake Total 260 ml Balance 260 ml Intake Oral 260 ml Current Medications: Meds: Current Medications Acetaminophen (Tylenol) 650 mg PRN Q6HRS PRN PO PAIN / TEMP; Start 04/24/17 at 23:15; Stop 04/25/17 at 17:34; Status DC Multi-Ingredient Ointment (Analgesic [place]) 1 prince PRN QID PRN TP MUSCLE PAIN; Start 04/24/17 at 23:15 Al Hydroxide/Mg Hydroxide (Mylanta Plus Xs) 15 ml PRN AFTMEALHC PRN PO DYSPEPSIA; Start 04/24/17 at 23:15 Magnesium Hydroxide (Milk Of Magnesia) 2,400 mg PRN QHS PRN PO CONSTIPATION Last administered on 04/29/17 18:09; Start 04/24/17 at 23:15 Quetiapine Fumarate (SEROquel) 50 mg DAILYWSUP PO Last administered on 17:01; Start 04/25/17 at 17:00; Stop 04/26/17 at 18:19; Status DC Sertraline HCl (Zoloft) 50 mg DAILY PO Last administered on 04/29/17 08:26; Start 04/25/17 at 09:00 Amlodipine Besylate (Norvasc) 5 mg DAILY PO Last administered on 04/29/17 08:29 ; Start 04/25/17 at 09:00 Aspirin (Aspirin Enteric Coated) 81 mg DAILY PO Last administered on 04/26/17 07:57; Start 04/25/17 at 09:00; Stop 04/26/17 at 17:27; Status DC Baclofen (Lioresal) 10 mg TID PO Last administered on 04/29/17 15:26; Start 04/25/17 at 09:00 Calcium/Vitamin D (Oscal D 500mg/ 200uts) 1 tab DAILY PO Last administered on 08:26; Start 04/25/17 at 09:00 Nystatin/ Triamcinolone Acetonide (Mycolog Ii) 1 prince DAILY TP Last administered on 04/29/17 08:29; Start 04/25/17 at 09:00 Atorvastatin Calcium (Lipitor) 10 mg QHS PO Last administered on 04/28/17 20:14 ; Start 04/25/17 at 21:00 Temazepam (Restoril) 15 mg PRN QHS PRN PO INSOMNIA; Start 04/24/17 at 23:30 Urea (Aqua Care) 1 prince PRN BID PRN TP calluses; Start 04/24/17 at 23:30 Vitamin E 200 unit DAILY PO Last administered on 04/29/17 08:27; Start 04/25/17 at 09:00 Ketotifen Fumarate (Zaditor) 1 drop BID OU Last administered on 04/29/17 08:29 ; Start 04/25/17 at 09:00 Zinc Oxide (Desitin Diaper Rash 40%) 1 prince PRN BID PRN TP DIAPER RASH Last administered on 04/27/17 09:38; Start 04/24/17 at 23:45 Cetirizine HCl (ZyrTEC) 10 mg DAILY PO Last administered on 04/29/17 08:27; Start 04/25/17 at 09:00 Fluocinonide (Lidex-E) 1 prince PRN TID PRN TP FACIAL RASH; Start 04/25/17 at 09:00 Pantoprazole Sodium (Protonix) 40 mg DAILYAC PO Last administered on 04/29/17 08:26; Start 04/25/17 at 07:30 Artificial Tears (Artificial Tears) 2 drop PRN TID PRN OU DRY EYE; Start at 23:45 Losartan Potassium (Cozaar) 100 mg DAILY PO Last administered on 04/29/17 08:27 ; Start 04/25/17 at 09:00 Acetaminophen (Tylenol) 650 mg PRN Q6HRS PRN PO PAIN / TEMP Last administered on 04/27/17 11:44; Start 04/25/17 at 17:34 Risperidone (RisperDAL) 0.25 mg QHS PO Last administered on 04/27/17 19:25; Start 04/26/17 at 21:00; Stop 04/28/17 at 18:50; Status DC Olanzapine (ZyPREXA ZYDIS) 2.5 mg PRN Q2HR PRN PO PSYCHOSIS; Start 04/26/17 at 20:15 Vitamin D (Vitamin D3) 50,000 unit WEEKLY PO Last administered on 04/29/17 08: 28; Start 04/29/17 at 09:00 Nystatin (Nystop) 15 prince STK-MED ONCE TP Last administered on 04/28/17 16:19; Start 04/28/17 at 16:19; Stop 04/28/17 at 16:20; Status DC Active Scripts Active Reported Vanicream Diaper Rash Ointment (Dimethicone/Zinc Oxide) 70 Gm Oint...g. 1 Prince TP BID PRN Vitamin E 200 Unit Capsule 200 Unit PO DAILY Diovan (Valsartan) 160 Mg Tablet 160 Mg PO DAILY Ureacin-10 (Urea) 236.56 Ml Lotion 1 Prince TP BID PRN Tylenol (Acetaminophen) 325 Mg Tablet 650 Mg PO PRN Q4HRS PRN Restoril (Temazepam) 15 Mg Capsule 15 Mg PO HS PRN Systane 0.3-0.4% Eye Drops (Propylene Glycol/Peg 400) 15 Ml Drops 2 Drop OP TID PRN Simvastatin 20 Mg Tablet 20 Mg PO HS Seroquel (Quetiapine Fumarate) 50 Mg Tablet 50 Mg PO DAILYWSUP Zoloft (Sertraline Hcl) 50 Mg Tablet 50 Mg PO DAILY Oyster Shell 500 Mg + Vit D Tb (Calcium Carbonate/Vitamin D3) 1 Each Tablet 1 Tab PO DAILY Azelastine Hcl 6 Ml Drops 1 Drop OP PRN Q8HRS PRN Omeprazole 20 Mg Capsule.dr 20 Mg PO DAILY Nystatin-Triamcinolone Cream (Nystatin/Triamcin) 15 Gm Cream..g. 1 Applic TP DAILY Alum-Mag Hydroxide-Simeth Liq (Mag Hydrox/Al Hydrox/Simeth) 360 Ml Oral.susp 30 Ml PO PRN Q4HRS Loratadine 10 Mg Tablet 10 Mg PO DAILY Loperamide (Loperamide Hcl) 2 Mg Tablet 4 Mg PO PRN MDD 8 tabs/24 hours Elocon (Mometasone Furoate) 15 Gm Oint...g. 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
[2017-04-29] MEDS: ATORVASTATIN CALCIUM 10 MG TABLET. PO SCH (20:15)
--- NOTE | 2017-04-29 22:07 | NUR ---
Behavior Intervention Response and Plan: BIRP Note: Behavior: Assumed Care of patient, patient located in Patient Room at shift change. Patient exhibited the following behavior Calm, Disorganized, Withdrawn. Brief assessment on rounds of vital signs, medication needs, lab studies, and pain. Treatment plan problems . Intervention: Patient assessed and the following interventions initiated safety checks 15 Minute Checks Cognitive Assessment , Head to toe Assessment , Medications. Response: After interactions and interventions patient responded in the following manner, Appropriate , Cooperative ,Compliant. Continue to assess behaviors and condition will continue to monitor throughout the shift as needed. Patient educated on ADL's, and hand hygiene. 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 Continue to assess patient for changes in above assessment. Monitor for medication needs, pain, and safety concerns. Hourly rounding performed to ensure safe environment.
--- NOTE | 2017-04-30 04:59 | CONS ---
DATE OF CONSULTATION: 04/29/2017 REFERRING PHYSICIAN: Robin Contreras MD REASON FOR CONSULTATION: Acute mental status changes. HISTORY OF PRESENT ILLNESS: This is an 86-year-old right-handed female who was admitted to [facility] for inpatient psychiatric stabilization on 04/24/2017 when the patient presented with increasing symptoms of paranoia, being disoriented, delusional along with hallucinations and difficulty to walk. Neuro consult was requested because the patient started having acute mental status changes over the last 2 days as she became nontalkative, denied her medications and food. She became more restless, delusional, and withdrawn. The nursing staff stated that the patient was placed on a Risperdal dose at bedtime on 04/26/2017. However, because of mental status changes, Risperdal was discontinued 24 hours ago. The patient continued to be in silence, nonverbal and does not follow any commands. PAST MEDICAL HISTORY: Significant for dementia, hypertension, GERD, peripheral vascular disease, chronic constipation, depression with psychotic features, hyperlipidemia. PAST SURGICAL HISTORY: Significant for cholecystectomy, appendectomy, and right total knee replacement. ALLERGIES: No known drug allergies. CURRENT MEDICATIONS: Vitamin D with calcium, olanzapine 2.5 mg q. 2 hours p.r.n. for agitation, Lipitor 10 mg at bedtime, Tylenol, losartan 100 mg daily, cetirizine 10 mg p.o. daily, vitamin E, Baclofen 10 mg t.i.d., amlodipine 5 mg daily, Zoloft 50 mg daily, pantoprazole 40 mg daily, temazepam 15 mg at bedtime p.r.n. for insomnia. REVIEW OF SYSTEMS: A 10-point review of system was performed and consistent with acute mental status changes as described above. GENERAL: Well-developed, well-nourished, white female, not in acute distress. She sits in a wheelchair. NEUROLOGIC: 1.Not responding to verbal commands, unable to initiate any words. She hardly follows commands. Judgment, memory, and abstract thinking are impaired. Further evaluation of her mental status is difficult to evaluate. 2.Cranial Nerves: Pupils are reactive to light and accommodation. The extraocular movements are intact. There is no nystagmus. There is no facial, motor, or sensory deficit. Hearing appeared to be diminished bilaterally. The palate is elevated symmetrically. Further evaluation of her mental status is difficult to evaluate. 3.Motor: No focal muscle bulk was seen. The tone is increased in the lower extremities. The strength was minus 4/5 throughout. Sensory examination revealed diminished pinprick and light touch senses in patchy distributions in both lower extremities. Deep tendon reflexes were ____, absent Achilles responses bilaterally. Gait: The patient uses a wheelchair for ambulation. PHYSICAL EXAMINATION: GENERAL: A well-developed, well-nourished white female, not in acute distress. VITAL SIGNS: She weighs 172 pounds. Blood pressure 148/67, respiratory rate 18, pulse is 86, temperature 96.7, oxygen saturation 97% on room air. HEENT: Normocephalic, atraumatic, otherwise unremarkable. NECK: Supple. Negative for carotid bruit, lymphadenopathy or thyromegaly. LUNGS: Clear to A and P. CARDIOVASCULAR: 2/6 systolic murmur. Normal S1, S2. There is no S3, S4 or murmur. ABDOMEN: Soft. Bowel sounds positive. EXTREMITIES: Negative for cyanosis or clubbing. But, the peripheral pulse is weak. Gait: The patient is sitting in the wheelchair and unable to walk. When we helped her to stand up with assistance, but the patient was markedly unsteady on her feet and she has to go back to a wheelchair. LABORATORY DATA: CBC revealed from 04/24/2017 revealed white blood cells of 7.4, hemoglobin 11.2, hematocrit 33.4, platelet count 213,000. Chemistry from 04/28/2015 revealed sodium of 140, potassium 4.4, chloride 102, CO2 29. BUN 29, creatinine 1.1, glucose is 108, calcium 9.6. Liver enzymes are normal. Vitamin B12 is 721. Thyroid profile is normal. Urinalysis is negative for urinary tract infections. RPR is nonreactive. DIAGNOSTIC DATA: Chest x-ray revealed hypoinflation of both lungs with mild bibasilar atelectasis. IMPRESSION: 1. Acute mental status changes: The patient appeared to be aphasic, does not follow any commands, rule out cerebral ischemic changes. 2. Longstanding history of dementia. 3. Multiple psychiatric problems include major depression, anxiety with psychotic features. 4. Multiple medical problems include hyperlipidemia, renal insufficiency, hypertension, and peripheral vascular disease. RECOMMENDATIONS: 1. Head CT scan. 2. Physical therapy evaluation. 3. Continue with current management initiated by Dr. Guy. M Leodan NG MD DR: KATTY/tomi JOB#: [id number] / [id number]
[2017-04-30 05:46] VITALS: BP 159/66
--- NOTE | 2017-04-30 07:15 | NUR ---
wound care patient seen per wound care consult. patient assessed and no wounds noted at this time. patient has redness to bilateral buttocks- recommendations of Calazime cream, prn. wound care is signing off at this time, please re-consult if the integumentary assessment changes.
[2017-04-30] MEDS: PANTOPRAZOLE 40 MG TABLET. PO SCH (07:30)
[2017-04-30] MEDS: VITAMIN E 200 UNIT CAPSULE. PO SCH (09:00)
[2017-04-30] MEDS: NYSTATIN/TRIAMCIN TOPICAL CREAM 15GM TUBE. TP SCH (09:00)
[2017-04-30] MEDS: LOSARTAN 50 MG TABLET. PO SCH (09:00)
[2017-04-30] MEDS: CALCIUM CARB/VIT D3 500/200 TABLET PO SCH (09:00)
[2017-04-30] MEDS: amLODIPine BESYLATE 5 MG TABLET PO SCH (09:00)
[2017-04-30] MEDS: SERTRALINE 50 MG TABLET. PO SCH (09:00)
[2017-04-30] MEDS: KETOTIFEN FUMARATE 0.025% OPHT SOLUTION BOTTLE. OU SCH (09:00)
--- NOTE | 2017-04-30 09:38 | RAD ---
CT scan of the head without contrast 04/30/2017 Clinical History: Mental status changes and behavior changes.. Technique: Unenhanced, contiguous, 5 mm axial sections were obtained through the head. One or more of the following individualized dose reduction techniques were utilized for this study: 1. Automated exposure control. 2. Adjustment of the mA and/or kV according to patient size. 3. Use of iterative reconstruction technique. Findings: No previous studies are available for comparison. There is generalized parenchymal atrophy. Small scattered areas of decreased attenuation are seen within the periventricular and subcortical white matter of both cerebral hemispheres consistent with areas of small vessel ischemic disease. No acute parenchymal abnormality is seen. No extra-axial fluid collection is noted. No skull fracture is seen. Impression: No acute intracranial abnormality is seen.
--- NOTE | 2017-04-30 10:00 | NUR ---
Behavior Intervention Response and Plan: BIRP Note: Behavior: Assumed Care of patient, patient located in Patient Room at shift change. Patient exhibited the following behavior , , . Brief assessment on rounds of vital signs, medication needs, lab studies, and pain. Treatment plan problems dementia w/ BD, Altered Thought Process and Fall Risk, . Intervention: Patient assessed and the following interventions initiated safety checks 15 Minute Checks Cognitive Assessment , Head to toe Assessment , Medications. Response: After interactions and interventions patient responded in the following manner, Motor Retardation , Drowsy ,Disorganized. Continue to assess behaviors and condition will continue to monitor throughout the shift as needed. Patient educated on ADL's, and hand hygiene. 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 Continue to assess patient for changes in above assessment. Monitor for medication needs, pain, and safety concerns. Hourly rounding performed to ensure safe environment.
[2017-04-30] MEDS ORDERED: BACLOFEN 10 MG TABLET PO PRN (10:45)
--- NOTE | 2017-04-30 10:56 | NUR ---
Note: Pt non-verbal and unable to walk at this time. Dr. Salmeron made aware and making medication changes at this time. Morning medications held due to choking hazard.
[2017-04-30] MEDS ORDERED: CHOL500016 PO (11:24)
[2017-04-30] MEDS ORDERED: PRENATAL MULTIVITAMIN TABLET. PO SCH (12:00)
--- NOTE | 2017-04-30 12:30 | NUR ---
Transition Record was faxed to follow-up provider with the following elements: Reason for admission, procedures, tests, principal diagnosis, pending studies, patient instructions, 15/04 contact information for unit, phone number to obtain pending test results, plan for follow-up care, physician follow-up, advanced directive information, and medication list with dose, duration and instructions. This information was included in the following documents: History and physical, lab results, study results, progress notes, social work planning form, DC instruction form, patient visit summary, and medication reconciliation form. Date & time record faxed:[id number] Record faxed to:ICU [facility] Record discussed with/ report given to: Sho ESCOBAR
--- NOTE | 2017-04-30 18:13 | PDOC ---
Exam Nito Demential Exam: Nito Note: Please also refer to the separate dictated note~for this date of service dictated separately.~Patient seen individually. Discussed the patient with Nursing staff reviewed the chart.~Reviewed interim history and current functioning. Reviewed vital signs,~Labs/ Radiology~and current medications noted below. Continue current treatment with the changes noted in the dictated addendum note Assessment: Vital Signs: Vital Signs Date Time Temp Pulse Resp B/P (MAP) Pulse Ox O2 Delivery O2 Flow Rate FiO2 04/30/17 05:46 97.0 73 18 159/66 (97) 91 04/29/17 16:05 Room Air I&O Intake and Output 04/30/17 07:00 Intake Total 960 ml Output Total 400 ml Balance 560 ml Intake Oral 960 ml Output Urine Total 400 ml Current Medications: Meds: Current Medications Acetaminophen (Tylenol) 650 mg PRN Q6HRS PRN PO PAIN / TEMP; Start 04/24/17 at 23:15; Stop 04/25/17 at 17:34; Status DC Multi-Ingredient Ointment (Analgesic [place]) 1 prince PRN QID PRN TP MUSCLE PAIN; Start 04/24/17 at 23:15; Stop 04/30/17 at 12:54; Status DC Al Hydroxide/Mg Hydroxide (Mylanta Plus Xs) 15 ml PRN AFTMEALHC PRN PO DYSPEPSIA; Start 04/24/17 at 23:15; Stop 04/30/17 at 12:54; Status DC Magnesium Hydroxide (Milk Of Magnesia) 2,400 mg PRN QHS PRN PO CONSTIPATION Last administered on 04/29/17 18:09; Start 04/24/17 at 23:15; Stop 04/30/17 at 12: 54; Status DC Quetiapine Fumarate (SEROquel) 50 mg DAILYWSUP PO Last administered on 17:01; Start 04/25/17 at 17:00; Stop 04/26/17 at 18:19; Status DC Sertraline HCl (Zoloft) 50 mg DAILY PO Last administered on 04/29/17 08:26; Start 04/25/17 at 09:00; Stop 04/30/17 at 12:54; Status DC Amlodipine Besylate (Norvasc) 5 mg DAILY PO Last administered on 04/29/17 08:29 ; Start 04/25/17 at 09:00; Stop 04/30/17 at 12:54; Status DC Aspirin (Aspirin Enteric Coated) 81 mg DAILY PO Last administered on 04/26/17 07:57; Start 04/25/17 at 09:00; Stop 04/26/17 at 17:27; Status DC Baclofen (Lioresal) 10 mg TID PO Last administered on 04/29/17 20:15; Start 04/25/17 at 09:00; Stop 04/30/17 at 10:48; Status DC Calcium/Vitamin D (Oscal D 500mg/ 200uts) 1 tab DAILY PO Last administered on 08:26; Start 04/25/17 at 09:00; Stop 04/30/17 at 12:54; Status DC Nystatin/ Triamcinolone Acetonide (Mycolog Ii) 1 prince DAILY TP Last administered on 04/29/17 08:29; Start 04/25/17 at 09:00; Stop 04/30/17 at 12:54; Status DC Atorvastatin Calcium (Lipitor) 10 mg QHS PO Last administered on 04/29/17 20:15 ; Start 04/25/17 at 21:00; Stop 04/30/17 at 12:54; Status DC Temazepam (Restoril) 15 mg PRN QHS PRN PO INSOMNIA Last administered on 20:39; Start 04/24/17 at 23:30; Stop 04/30/17 at 10:48; Status DC Urea (Aqua Care) 1 prince PRN BID PRN TP calluses; Start 04/24/17 at 23:30; Stop at 12:54; Status DC Vitamin E 200 unit DAILY PO Last administered on 04/29/17 08:27; Start 04/25/17 at 09:00; Stop 04/30/17 at 12:54; Status DC Ketotifen Fumarate (Zaditor) 1 drop BID OU Last administered on 04/29/17 20:16 ; Start 04/25/17 at 09:00; Stop 04/30/17 at 12:54; Status DC Zinc Oxide (Desitin Diaper Rash 40%) 1 prince PRN BID PRN TP DIAPER RASH Last administered on 04/27/17 09:38; Start 04/24/17 at 23:45; Stop 04/30/17 at 12:54; Status DC Cetirizine HCl (ZyrTEC) 10 mg DAILY PO Last administered on 04/29/17 08:27; Start 04/25/17 at 09:00; Stop 04/30/17 at 10:48; Status DC Fluocinonide (Lidex-E) 1 prince PRN TID PRN TP FACIAL RASH; Start 04/25/17 at 09:00 ; Stop 04/30/17 at 12:54; Status DC Pantoprazole Sodium (Protonix) 40 mg DAILYAC PO Last administered on 04/29/17 08:26; Start 04/25/17 at 07:30; Stop 04/30/17 at 12:54; Status DC Artificial Tears (Artificial Tears) 2 drop PRN TID PRN OU DRY EYE; Start at 23:45; Stop 04/30/17 at 12:54; Status DC Losartan Potassium (Cozaar) 100 mg DAILY PO Last administered on 04/29/17 08:27 ; Start 04/25/17 at 09:00; Stop 04/30/17 at 12:54; Status DC Acetaminophen (Tylenol) 650 mg PRN Q6HRS PRN PO PAIN / TEMP Last administered on 04/27/17 11:44; Start 04/25/17 at 17:34; Stop 04/30/17 at 12:54; Status DC Risperidone (RisperDAL) 0.25 mg QHS PO Last administered on 04/27/17 19:25; Start 04/26/17 at 21:00; Stop 04/28/17 at 18:50; Status DC Olanzapine (ZyPREXA ZYDIS) 2.5 mg PRN Q2HR PRN PO PSYCHOSIS; Start 04/26/17 at 20:15; Stop 04/30/17 at 12:54; Status DC Vitamin D (Vitamin D3) 50,000 unit WEEKLY PO Last administered on 04/29/17 08: 28; Start 04/29/17 at 09:00; Stop 04/30/17 at 12:54; Status DC Nystatin (Nystop) 15 prince STK-MED ONCE TP Last administered on 04/28/17 16:19; Start 04/28/17 at 16:19; Stop 04/28/17 at 16:20; Status DC Prenat Multivit/ Compliance Lead/Iron/Folic Ac (Multivitamin ) 1 tab DAILYWLUN PO ; Start 04/30/17 at 12:00; Stop 04/30/17 at 12:54; Status DC Baclofen (Lioresal) 10 mg PRN TID PRN PO MUSCLE SPASMS; Start 04/30/17 at 10:45 ; Stop 04/30/17 at 12:54; Status DC Active Scripts Active Reported Vitamin D3 (Cholecalciferol (Vitamin D3)) 5,000 Unit Tablet 5,000 Unit PO WEEKLY Vanicream Diaper Rash Ointment (Dimethicone/Zinc Oxide) 70 Gm Oint...g. 1 Prince TP BID PRN Vitamin E 200 Unit Capsule 200 Unit PO DAILY Diovan (Valsartan) 160 Mg Tablet 160 Mg PO DAILY Ureacin-10 (Urea) 236.56 Ml Lotion 1 Prince TP BID PRN Tylenol (Acetaminophen) 325 Mg Tablet 650 Mg PO PRN Q4HRS PRN Systane 0.3-0.4% Eye Drops (Propylene Glycol/Peg 400) 15 Ml Drops 2 Drop OP TID PRN Simvastatin 20 Mg Tablet 20 Mg PO HS Zoloft (Sertraline Hcl) 50 Mg Tablet 50 Mg PO DAILY Oyster Shell 500 Mg + Vit D Tb (Calcium Carbonate/Vitamin D3) 1 Each Tablet 1 Tab PO DAILY Azelastine Hcl 6 Ml Drops 1 Drop OP PRN Q8HRS PRN Omeprazole 20 Mg Capsule.dr 20 Mg PO DAILY Nystatin-Triamcinolone Cream (Nystatin/Triamcin) 15 Gm Cream..g. 1 Applic TP DAILY Alum-Mag Hydroxide-Simeth Liq (Mag Hydrox/Al Hydrox/Simeth) 360 Ml Oral.susp 30 Ml PO PRN Q4HRS Loratadine 10 Mg Tablet 10 Mg PO DAILY Loperamide (Loperamide Hcl) 2 Mg Tablet 4 Mg PO PRN MDD 8 tabs/24 hours Elocon (Mometasone Furoate) 15 Gm Oint...g. 1 Prince TP PRN DAILY PRN Aspir-Low (Aspirin) 81 Mg Tablet.dr 81 Mg PO Amlodipine Besylate 5 Mg Tablet 5 Mg PO DAILY Diagnosis: Problems: (1) Dementia, vascular, with delusions (2) Dementia in Alzheimer's disease with delusions (3) Psychotic depression (4) Impulse control disorder (5) Anxiety disorder (6) Psychosis, atypical ELIZABETH DALY MD Apr 30, 2017 18:13
--- NOTE | 2017-04-30 22:14 | DS ---
DATE OF DISCHARGE: 04/30/2017 IDENTIFYING DATA: The patient is an 86-year-old female referred to us from [place], [place] by her primary care physician on account of increased confusion, lack of self care, marked insomnia, resistive to care, hallucinating, muttering under her breath with worsening confusion. The patient had been living in an assisted living until the recent past and had increased confusion, inability to be maintained at the assisted living, moved to the nursing facility and then her psychotic symptoms, confusion worsened resulting in this referral. SIGNIFICANT FINDINGS AND CLINICAL COURSE: Following admission, the patient was seen daily individually by myself from a psychiatric standpoint, medical followup per Dr. Salmeron/Dr. Guy. The patient was having intermittent hallucinations, psychotic symptoms. She was on Seroquel before she arrived with us. This was changed to Risperdal 0.25 mg p.o. at bedtime just for a day or so. Gradually, she seemed a little more withdrawn, isolative, difficulty ambulating, oral intake was poor, she was relatively nonverbal. We did stop the Risperdal after I discussed this with the daughter. Behaviorally, the patient was still somewhat withdrawn, but psychotic symptoms were improved. However, at this stage, her ambulation was impaired and she was more withdrawn, confused. Past history also indicated that about a month back, she was sent to the Emergency Room in [place] due to a questionable TIA. Nevertheless, on 04/30/2017 given her general medical condition, Dr. Salmeron transferred her to the medical/surgical floor for further medical workup and stabilization. We will reassess her and readmit her on the Psychiatry Service if clinically indicated once she is medically stable. REVIEW OF SYSTEMS: Prior to discharge on 04/30/2017, she was withdrawn. Ambulation impaired. No CV, , pulmonary, eye, ENT system symptoms on review. Reliability poor. MENTAL STATUS EXAM: Oriented to herself and situation. Speech has moderate latency, often responses monosyllabic. Abstraction fair, computation impaired, language function intact. Mood and affect withdrawn. LABORATORY DATA: Reviewed. FINAL DIAGNOSES: Psychotic disorder, unspecified; major depressive disorder with psychotic features; anxiety disorder, unspecified. The patient had manifested increased confusion and there is a question whether the scheduled dosage of baclofen along with Zyrtec might in some way be contributing to this and I will defer to Dr. Salmeron for further clarification. DISCHARGE MEDICATIONS: Please refer to the [facility]AD. We will reassess the patient on the medical/surgical floor when she is medically stable to determine if she needs to be readmitted to Psychiatry Service, otherwise [facility]. Time for discharge day management is greater than 30 minutes. ELIZABETH DALY MD DR: MONIKA/tomi JOB#: [id number] / [id number]
--- NOTE | 2017-04-30 23:15 | PN ---
DATE: 04/29/2017 PSYCHIATRIC PROGRESS NOTE This is a late entry of 04/29/2017 covers elements not covered in my initial note of 04/29/2017. SUBJECTIVE: I met with the patient evening of 04/29/2017. Per nursing report, the patient has been somewhat withdrawn, relatively nonverbal, ambulation is impaired. She has had some involuntary tremors and Dr. Duncan has been requested for Neurology consult. I did return a telephone call from the patient's daughter Laxmi Lim [phone] and discussed the patient's diagnosis and current medications. The daughter prefers to have the patient not take any of the atypical antipsychotics. She was previously on Seroquel before she came to us and since psychotic symptoms persisted we changed it to Risperdal, which we since discontinued as of the day before on 04/28/2017. REVIEW OF SYSTEMS: No CV, , pulmonary, eye, ENT system symptoms on review. Gait unsteady. MENTAL STATUS EXAM: Oriented to herself and situation, not very verbal. Speech is minimal. She did eat some mashed potatoes with assistance. Abstraction fair, computation impaired, language function intact, attention span short, mood and affect withdrawn, depressed intermittently psychotic. LABORATORY DATA: Reviewed. IMPRESSION: Major depressive disorder with psychotic features; major neurocognitive disorder, early Alzheimer, vascular with depression, delusion versus mild cognitive impairment. PLAN: Daughter remarked that the patient was living in an assisted living till recently and has had significant deterioration in overall functioning since then. She slept very poorly the night before. We will use temazepam 15 mg at bedtime p.r.n. Continue Zoloft 50 mg a day. Await Neurology consult. Adjust further as clinically indicated. MAN Anthony DALY MD DR: MONIKA/tomi JOB#: [id number] / [id number]
--- NOTE | 2017-05-01 01:20 | PN ---
DATE: 04/30/2017 SUBJECTIVE: Nursing staff asked to me to see the patient because of her change in mental status, very-very lethargic, not responding, where she came in walking and talking. Her date of [facility] was 04/24/2017 [facility]. Review of her medication list as well as PRNs: The patient's EMR from the shelter, has baclofen on it t.i.d. p.r.n.; however, it was put in as a scheduled medication t.i.d. So. she has been getting baclofen 10 mg t.i.d. since the . She has also got temazepam 15 mg last night and her Claritin was switched to Zyrtec because of pharmacy stock. The patient saw Dr. Duncan last night and had a CT of the head, which was negative. Also in the chart review, the patient has some left internal carotid artery stenosis of 50-69%. OBJECTIVE: GENERAL: The patient was seen in her room. Her sat taken by me was 92% on room air. Blood pressure 159/66, pulse 73, temperature 97.0, another sat this morning was 91% on room air. The patient is awake. She is looking at me, but does not answer any questions. Her color is pale. HEENT: Her tongue is dry. NECK: Supple. LUNGS: Clear. CARDIOVASCULAR: Regular rhythm and rate with a 2/6 systolic murmur. ABDOMEN: Soft. Bowel sounds are positive. Nontender. EXTREMITIES: Without edema. NEUROLOGIC: She is not able to follow any directions. Speech could not be evaluated. She is not answering questions. She did not respond to cold stimuli as my hands were very cold and did not even flinch when I touched her legs. LABORATORY DATA: From 2 days ago, BUN 29 and creatinine 1.1. ASSESSMENT: 1. Metabolic encephalopathy. 2. Over sedation secondary to suspect medication. 3. Mild hypoxia. 4. Dementia with behavior disturbance. PLAN: The patient will need to be transferred to the ICU for closer monitoring. She will need oxygen. Her medications will be held. She received IV fluids and we will check labs. ISADORA ROACH DO DR: MARISSA/tomi JOB#: [id number] / [id number]
--- NOTE | 2017-05-01 03:25 | PN ---
DATE: SUBJECTIVE: The patient continues to be nonverbal. She cannot communicate or follow commands. She was transferred to the ICU for further evaluation. Initial nonenhanced head CT scan revealed evidence of chronic small vessel ischemic disease, otherwise no acute intracranial process as hemorrhage or massive stroke. The patient continues to have difficulty swallowing. So, she is off all oral medications since this morning. OBJECTIVE: GENERAL: Well-developed, well-nourished white female, not in acute distress. VITAL SIGNS: Blood pressure 154/63, respiratory rate 16, pulse 71 and regular, temperature 99.2, oxygen saturation is 98% on 2 liters by nasal cannula. HEENT: Normocephalic, atraumatic, otherwise unremarkable. NECK: Slightly stiff. Negative for carotid bruit, lymphadenopathy, or thyromegaly. LUNGS: Clear to A and P. CARDIOVASCULAR: Regular rate and rhythm, normal S1, S2. There is a 2/6 systolic murmur. ABDOMEN: Soft. Bowel sounds positive. EXTREMITIES: Negative for cyanosis, clubbing or edema. NEUROLOGICAL EXAM: Mental Status: The patient is awake, but not verbal, does not follow commands. Cranial nerves: The pupils are equal and sluggishly reactive to light. There is no facial motor or sensory deficit. There is no nystagmus. Distal motor examination: The patient had passively moved her upper extremities equally. She does not cooperative with the manual muscle examination. Sensory examination appeared to be normal to pinprick and light touch senses. Deep tendon reflexes is symmetric, but hypoactive with absent Achilles responses. Gait not tested. LABORATORY DATA: CBC revealed white blood cells of 7.8 thousands, hemoglobin 12, hematocrit 36.3 and platelet count 189,000. Chemistry reveals sodium of 141, potassium 4.1, chloride 104, CO2 of 32, BUN 28, creatinine 0.8, glucose 92, lactic acid is 0.9. Liver enzymes are normal. IMPRESSION: 1. Acute encephalopathy, probably metabolic. 2. Longstanding history of dementia, chronic kidney disease, hyperlipidemia, hypertension and peripheral vascular disease. 3. Multiple psychiatric problems including major depression, anxiety and major depression with psychotic features. According to the patient's daughter, the patient has had an episode of confusion and memory loss ____ 24 hours and she regained her mental status. 4. Dementia and depression as above. RECOMMENDATIONS: 1. Continue with current management, initiated with Dr. Faviola. 2. Avoid sedation. 3. Check swallowing function test. M Leodan NG MD DR: KATTY/tomi JOB#: [id number] / [id number]
== END 2017-04-30 12:54 | disposition short-term general hospital (02) | DRG 56 ==
LOC: ER 19:26 → GEROPSY 22:02
PROVIDERS: ADMIT Psychiatry & Neurology Psychiatry; ATTEND Psychiatry & Neurology Psychiatry
DX: G30.0 Alzheimer's disease with early onset (principal); G93.41 Metabolic encephalopathy; F01.51 Vascular dementia, unspecified severity, with behavioral disturbance; F02.81 Dementia in other diseases classified elsewhere, unspecified severity, with behavioral disturbance; F32.3 Major depressive disorder, single episode, severe with psychotic features; F23 Brief psychotic disorder; E78.5 Hyperlipidemia, unspecified; E86.0 Dehydration; F41.9 Anxiety disorder, unspecified; F63.9 Impulse disorder, unspecified; I12.9 Hypertensive chronic kidney disease with stage 1 through stage 4 chronic kidney disease, or unspecified chronic kidney disease; I73.9 Peripheral vascular disease, unspecified; K21.9 Gastro-esophageal reflux disease without esophagitis; N18.9 Chronic kidney disease, unspecified; I65.22 Occlusion and stenosis of left carotid artery; K59.09 Other constipation; Z96.651 Presence of right artificial knee joint; G47.00 Insomnia, unspecified; R41.3 Other amnesia; E66.9 Obesity, unspecified; R13.10 Dysphagia, unspecified; R09.02 Hypoxemia; Z79.899 Other long term (current) drug therapy; Z87.440 Personal history of urinary (tract) infections; Z68.31 Body mass index [BMI] 31.0-31.9, adult; Z88.8 Allergy status to other drugs, medicaments and biological substances; Z90.49 Acquired absence of other specified parts of digestive tract
CPT/HCPCS: 36415; 70450; 71010; 80053; 80061; 81001; 82306; 82607; 83036; 83540; 83550; 83735; 84436; 84443; 84480; 85027; 86592; 86593; 93005; 97110; 97116; 97530; 97535; 99285-25

== ENCOUNTER 2017-04-30 12:57 | Inpatient (IN) | payer MEDICARE, OTHER ==
[~2017-04-30] VITALS: Ht 157.5 cm; Wt 71.9 kg
[2017-04-30] VITALS (11 sets, daily range): BP systolic 152–176; BP diastolic 63–79
[~2017-04-30 12:57] MED LIST: ACET325T9 PO; AMLO5TAB2 PO; ASPI81TA50 PO; AZEL6DRO2 OP; BACL10TA PO; CALC1TAB70 PO; CHOL500016 PO; LOPE2TAB27 PO; LORA10TA3 PO; MAG360OR24 PO; MOME15OI TP; NYST15CR2 TP; OMEP20CA9 PO; PROP15DR40 OP; QUET50TA5 PO; SERT50TA PO; SIMV20TA3 PO; TEMA15CA6 PO; VALS160T3 PO; VITA200C PO; [UNRECOGNIZED DRUG - CODE] TP; [UNRECOGNIZED DRUG - CODE] TP
[2017-04-30] MEDS: IV RINGERS SOLUTION,LACTATED 1,000 ML IV SCH ×2 (13:45→20:46)
[2017-04-30] MEDS ORDERED: MVI, ADULT NO.4 WITH VIT K 10 ML, FOLIC ACID SYRINGE for ER 1 MG, THIAMINE 100 MG in IV... IV ONE ×4 (13:45)
[2017-04-30 14:05] LABS: BASO % 1 % (0-3); EOS # 0.1 x10^3/uL (0.0-0.7); EOS % 2 % (0-3); HEMATOCRIT 36.3 % (36.0-47.0); LYMPH # 1.5 x10^3/uL (1.0-4.8); LYMPH % 19 % (24-48); MEAN CORPUSCULAR HEMOGLOBIN 30 pg (25-35); MEAN CORPUSCULAR HGB CONC 33 g/dL (31-37); MEAN CORPUSCULAR VOLUME 90 fL (79-100); MONO # 0.7 x10^3/uL (0.0-1.1); MONO % 9 % (0-9); NEUT # 5.5 x10^3uL (1.8-7.7); NEUT % 70 % (31-73); PLATELET COUNT 189 x10^3/uL (140-400); RED BLOOD COUNT 4.02 x10^6/uL (3.50-5.40); RED CELL DISTRIBUTION WIDTH 14.5 % (11.5-14.5); WHITE BLOOD COUNT 7.8 x10^3/uL (4.0-11.0)
[2017-04-30 14:18] LABS: ALBUMIN 3.4 g/dL (3.4-5.0); CALCIUM 8.8 mg/dL (8.5-10.1); CREATININE 0.8 mg/dL (0.6-1.0); GFR 67.8; MAGNESIUM 2.2 mg/dL (1.8-2.4); POTASSIUM 4.1 mmol/L (3.5-5.1); TOTAL BILIRUBIN 0.6 mg/dL (0.2-1.0); TOTAL PROTEIN 6.7 g/dL (6.4-8.2)
--- NOTE | 2017-04-30 17:56 | HP ---
ADMIT DATE: 04/30/2017 REASON FOR ADMISSION: Altered mental status. HISTORY OF PRESENT ILLNESS: This is an 86-year-old female who was an inpatient on the [facility]. The nursing staff asked me to see her today because of marked change in her mentation where she was lethargic, not being calm and not being able to get out of bed, very sleepy. Review of her records reveal that instead of getting baclofen as a p.r.n., she was getting 10 mg 3 times a day and has been getting that since April 24. She also received temazepam last night and is on Seroquel. PAST MEDICAL HISTORY: Hypertension, reflux, peripheral vascular disease, chronic constipation. Review of carotid Dopplers reveals some carotid artery stenosis, I believe in the right internal carotid artery. PSYCHIATRIC HISTORY: Major depressive disorder with psychotic features and in fact she was admitted to the [facility] because of paranoid behavior and exit seeking and previous to that was alert and oriented x 3. ALLERGIES: ALENDRONATE, AND RISEDRONATE. MEDICATIONS: Reviewed as well as change in medications are available on the NOV. FAMILY HISTORY: Unremarkable. SOCIAL HISTORY: She is a resident at [facility]. Does not smoke, drink alcohol or use drugs. I met with her daughter who is her DPOA. REVIEW OF SYSTEMS: Positive for other episodes like the one she has had today. She has also had some urinary retention today. PHYSICAL EXAMINATION: VITAL SIGNS: Pulse 67, respirations 17, pulse ox is 99% on 2 liters, she was 91-92 on room air, blood pressure 174/74, height 62 inches, weight 155 pounds. GENERAL: Frail elderly female in mild distress. The patient is awake, but is not verbalizing. Tongue is midline. It is somewhat dry. NECK: Supple. LUNGS: Clear. CARDIOVASCULAR: Regular rhythm and rate without murmur. ABDOMEN: Soft, nontender. EXTREMITIES: With a trace of edema. NEUROLOGIC: The patient cannot go through any maneuvers for cranial nerves. She was not able to stick out her tongue or follow any directions. Of note is that the examiner's hands are very cold and she did not really flinch initially, but about 2 hours later, a Pérez catheter was inserted and she did have some response to having that done. LABORATORY DATA: Reviewed and remarkably normal at the moment. Lactic acid 0.9. ASSESSMENT: 1. Metabolic encephalopathy due to over sedating medications. 2. Major depressive disorder with psychotic features. 3. Mild dehydration. 4. Fall risk. PLAN: Hold all medications. Give IV fluids, monitor for infection and PT, OT in the morning. ISADORA ROACH DO DR: MARISSA/tomi JOB#: [id number] / [id number]
[2017-05-01] VITALS (24 sets, daily range): BP systolic 132–174; BP diastolic 55–76
--- NOTE | 2017-05-01 01:13 | ACF ---
Admission Criteria Forms MENTAL STATUS CHANGE Clinical Indications for Inpatient Care (Place 'X' for any and all applicable criteria): Ongoing inpatient care may be needed for 1 or more of the following(1)(2)(3)(5)( 6): [x]I. Suspected serious etiology (eg, medical disorder, DOCKET CLERK event) of altered mental status [ ]II. Danger to self or others not manageable at lower level of care [ ]III. Grave disability (eg, inability to perform self care necessary at lower level of care) [ ]IV. Agitation or inappropriate behavior interfering with care for primary condition (eg, attempting to discontinue lines or drains prematurely, unable to cooperate with respiratory care) [ ]V. Delirium [A] [D][E] as described by 1 or more of the following(26): [ ]a) Delirium due to alcohol or sedative [F] withdrawal [ ]b) Delirium of uncertain etiology that has not responded to appropriate empiric treatment [ ]c) Delirium that prevents performance of a life-sustaining function (eg, feeding or hydrating oneself) [ ]. General contraindications and/or Inappropriate clinical situations for Observational Care in patients with Mental Status Change, when ANY ONE of the following is required: [ ]a) Prediction of prolongation of LOS based on ANY ONE of the following may be considered as a contraindication for observational care 2, 3, 4, 5, 6, 7, 8, 9, 10, 11 [ ]i) Age > 65 yrs. [ ]ii) Patient arriving by ambulance [ ]iii) Patient with high acuity [ ]iv) Patient requiring vital sign monitoring [ ]v) Patient on IV medication [ ]b) Systolic blood pressures greater than or equal to 180mmHg 3, 12 [ ]c) Patient with altered mental status including delirium and other alteration of consciousness, (3) [ ]d) Patient whose discharge disposition will be to a [facility] home or rehabilitation home should not be managed in Emergency Department Observation Unit. CMS rule requires 3 days hospital stay before such placement.3,13 [ ]e) Patient with failure to thrive due to broad array of etiologies 3,16,17 [ ]f) Inability to ambulate 3,14 Extended stay beyond goal length of stay for the primary condition may be needed until ALL of the following are present(3)(5): [ ]a) Underlying medical etiology of mental status change is absent, or has been established and adequately treated [ ]b) Danger to self or others is absent or manageable at lower level of care. [ ]c) Behavior crisis management, including physical or chemical restraints, is not required or available at lower level of car [ ]d) Substance or alcohol withdrawal is absent or manageable at lower level of care. [ ]e) Behavioral symptoms (eg, agitation, somnolence, inappropriate behavior) are absent, or are manageable at lower level of care. The original [facility] [employer] content created by [facility] has been revised. The portions of the content which have been revised are identified through the use of italic text or in bold, and [facility] has neither reviewed nor approved the modified material. All other unmodified content is copyright [facility]. Please see references footnoted in the original [facility] edition 2016 Admission Criteria Met?: Yes LUNA PHAM May 01, 2017 01:13
[2017-05-01] MEDS: IV RINGERS SOLUTION,LACTATED 1,000 ML IV SCH ×3 (05:18→20:24)
[2017-05-01 06:12] LABS: BASO # 0.1 x10^3/uL (0.0-0.2); BASO % 1 % (0-3); EOS # 0.2 x10^3/uL (0.0-0.7); EOS % 2 % (0-3); HEMATOCRIT 33.4 % (36.0-47.0); HEMOGLOBIN 11.2 g/dL (12.0-15.5); LYMPH # 1.3 x10^3/uL (1.0-4.8); LYMPH % 17 % (24-48); MEAN CORPUSCULAR HEMOGLOBIN 30 pg (25-35); MEAN CORPUSCULAR HGB CONC 34 g/dL (31-37); MEAN CORPUSCULAR VOLUME 90 fL (79-100); MONO # 0.7 x10^3/uL (0.0-1.1); MONO % 10 % (0-9); NEUT # 5.3 x10^3uL (1.8-7.7); NEUT % 70 % (31-73); PLATELET COUNT 139 x10^3/uL (140-400); RED BLOOD COUNT 3.72 x10^6/uL (3.50-5.40); RED CELL DISTRIBUTION WIDTH 14.5 % (11.5-14.5); WHITE BLOOD COUNT 7.5 x10^3/uL (4.0-11.0)
[2017-05-01 06:13] LABS: CALCIUM 8.3 mg/dL (8.5-10.1); CREATININE 0.8 mg/dL (0.6-1.0); GFR 67.8; MAGNESIUM 1.8 mg/dL (1.8-2.4); POTASSIUM 3.6 mmol/L (3.5-5.1); TOTAL BILIRUBIN 0.7 mg/dL (0.2-1.0)
--- NOTE | 2017-05-01 11:28 | PN ---
DATE: 05/01/2017 SUBJECTIVE: The patient started to improve. The patient slept well last night. No new medical or neurological complaints reported at this time; however, the patient's mental status started to improve over the last 12 hours. OBJECTIVE: GENERAL: Well-developed, well-nourished white female, not in acute distress. VITAL SIGNS: Blood pressure 173/76, respiratory rate 18, pulse is 68 and regular, oxygen saturation 96% on 2 liters by nasal cannula. HEENT: Normocephalic, atraumatic, otherwise unremarkable. NECK: Supple. Negative for carotid bruit, lymphadenopathy or thyromegaly. LUNGS: Clear to A and P. CARDIOVASCULAR: Regular rhythm, normal S1, S2. There is a 2/6 systolic murmur. ABDOMEN: Soft, bowel sounds positive. EXTREMITIES: Negative for cyanosis, clubbing or pitting edema. NEUROLOGICAL EXAM: Mental Status: The patient is more alert and oriented. She follows 1-step command. She started talking and mentioning some words. CRANIAL NERVES: The pupils are reactive to light and accommodation. The extraocular movements are intact. There is no nystagmus. There is no facial, motor or sensory deficit. Hearing appears to be intact. The palate is elevated symmetrically. Sternocleidomastoid muscles are powerful bilaterally. The patient shrugs her shoulders symmetrically and protrudes her tongue in the midline without fasciculation or atrophy. MOTOR: No focal muscle bulk was seen. The tone is normal. The strength is 4/5 throughout. Sensory examination revealed normal pinprick and light touch senses throughout. Deep tendon reflexes were symmetric and hypoactive without pathologic responses. Gait not tested. LABORATORY DATA: CBC revealed white blood cells of 7500, hemoglobin 11.2, hematocrit 33.4, platelet count of 139,000. Chemistry revealed sodium of 140, potassium 3.6, chloride 104, CO2 of 30, BUN 20, creatinine 0.8, glucose 79. Liver enzymes are normal. Swallowing function test is pending. IMPRESSION: 1. Acute encephalopathy - started to improve. 2. Multiple medical problems include hypertension, vitamin D deficiency, gastroesophageal reflux disease, and hyperlipidemia. 3. Multiple psychiatric problems including dementia, depression, and possible anxiety. RECOMMENDATIONS: 1. Continue with current management initiated by Dr. Salmeron. 2. Avoid sedation as much as possible. 3. Await for swallowing function test results. M Leodan NG MD DR: Evangelista JOB#: [id number] / [id number]
--- NOTE | 2017-05-01 18:15 | PDOC ---
Exam Nito Demential Exam: Nito Note: Please also refer to the separate dictated note~for this date of service dictated separately.~Patient seen individually. Discussed the patient with Nursing staff reviewed the chart.~Reviewed interim history and current functioning. Reviewed vital signs,~Labs/ Radiology~and current medications noted below. Continue current treatment with the changes noted in the dictated addendum note Assessment: Vital Signs: Vital Signs Date Time Temp Pulse Resp B/P (MAP) Pulse Ox O2 Delivery O2 Flow Rate FiO2 05/01/17 17:12 101 18 169/69 (102) 95 Nasal Cannula 2.0 05/01/17 15:15 98.0 I&O Intake and Output 05/01/17 07:00 Intake Total 2010 ml Output Total 970 ml Balance 1041 ml Intake Oral 0 ml IV Total 2010 ml Output Urine Total 970 ml Labs: Laboratory Tests Test 05/01/17 05:35 White Blood Count 7.5 x10^3/uL (4.0-11.0) Red Blood Count 3.72 x10^6/uL (3.50-5.40) Hemoglobin 11.2 g/dL (12.0-15.5) L Hematocrit 33.4 % (36.0-47.0) L Mean Corpuscular Volume 90 fL (79-100) Mean Corpuscular Hemoglobin 30 pg (25-35) Mean Corpuscular Hemoglobin Concent 34 g/dL (31-37) Red Cell Distribution Width 14.5 % (11.5-14.5) Platelet Count 139 x10^3/uL (140-400) L Neutrophils (%) (Auto) 70 % (31-73) Lymphocytes (%) (Auto) 17 % (24-48) L Monocytes (%) (Auto) 10 % (0-9) H Eosinophils (%) (Auto) 2 % (0-3) Basophils (%) (Auto) 1 % (0-3) Neutrophils # (Auto) 5.3 x10^3uL (1.8-7.7) Lymphocytes # (Auto) 1.3 x10^3/uL (1.0-4.8) Monocytes # (Auto) 0.7 x10^3/uL (0.0-1.1) Eosinophils # (Auto) 0.2 x10^3/uL (0.0-0.7) Basophils # (Auto) 0.1 x10^3/uL (0.0-0.2) Sodium Level 140 mmol/L (136-145) Potassium Level 3.6 mmol/L (3.5-5.1) Chloride Level 104 mmol/L (98-107) Carbon Dioxide Level 30 mmol/L (21-32) Anion Gap 6 (6-14) Blood Urea Nitrogen 20 mg/dL (7-20) Creatinine 0.8 mg/dL (0.6-1.0) Estimated GFR (Cockcroft-Gault) 67.8 BUN/Creatinine Ratio 25 (6-20) H Glucose Level 79 mg/dL (70-99) Calcium Level 8.3 mg/dL (8.5-10.1) L Magnesium Level 1.8 mg/dL (1.8-2.4) Total Bilirubin 0.7 mg/dL (0.2-1.0) Aspartate Amino Transferase (AST) 19 U/L (15-37) Alanine Aminotransferase (ALT) 22 U/L (14-59) Alkaline Phosphatase 76 U/L (46-116) Total Protein 6.0 g/dL (6.4-8.2) L Albumin 3.0 g/dL (3.4-5.0) L Albumin/Globulin Ratio 1.0 (1.0-1.7) Current Medications: Meds: Current Medications Multivitamins/ Minerals 10 ml/ Folic Acid 1 mg/ Thiamine HCl 100 mg/Lactated Ringer's 1,011.1 ml @ 125 mls/ hr 1X ONCE IV Last administered on 04/30/17 15 :01; Start 04/30/17 at 13:45; Stop 04/30/17 at 21:50; Status DC Lactated Ringer's 1,000 ml @ 125 mls/hr Q8H IV Last administered on 05/01/17 13:03; Start 04/30/17 at 13:45 Active Scripts Active Reported Vitamin D3 (Cholecalciferol (Vitamin D3)) 5,000 Unit Tablet 5,000 Unit PO WEEKLY Vanicream Diaper Rash Ointment (Dimethicone/Zinc Oxide) 70 Gm Oint...g. 1 Prince TP BID PRN Vitamin E 200 Unit Capsule 200 Unit PO DAILY Diovan (Valsartan) 160 Mg Tablet 160 Mg PO DAILY Ureacin-10 (Urea) 236.56 Ml Lotion 1 Prince TP BID PRN Tylenol (Acetaminophen) 325 Mg Tablet 650 Mg PO PRN Q4HRS PRN Systane 0.3-0.4% Eye Drops (Propylene Glycol/Peg 400) 15 Ml Drops 2 Drop OP TID PRN Simvastatin 20 Mg Tablet 20 Mg PO HS Zoloft (Sertraline Hcl) 50 Mg Tablet 50 Mg PO DAILY Oyster Shell 500 Mg + Vit D Tb (Calcium Carbonate/Vitamin D3) 1 Each Tablet 1 Tab PO DAILY Azelastine Hcl 6 Ml Drops 1 Drop OP PRN Q8HRS PRN Omeprazole 20 Mg Capsule.dr 20 Mg PO DAILY Nystatin-Triamcinolone Cream (Nystatin/Triamcin) 15 Gm Cream..g. 1 Applic TP DAILY Alum-Mag Hydroxide-Simeth Liq (Mag Hydrox/Al Hydrox/Simeth) 360 Ml Oral.susp 30 Ml PO PRN Q4HRS Loratadine 10 Mg Tablet 10 Mg PO DAILY Loperamide (Loperamide Hcl) 2 Mg Tablet 4 Mg PO PRN MDD 8 tabs/24 hours Elocon (Mometasone Furoate) 15 Gm Oint...g. 1 Prince TP PRN DAILY PRN Aspir-Low (Aspirin) 81 Mg Tablet. 81 Mg PO Amlodipine Besylate 5 Mg Tablet 5 Mg PO DAILY Diagnosis: Problems: (1) Anxiety disorder (2) Psychosis, atypical (3) Psychotic depression (4) Dementia in Alzheimer's disease with delusions ELIZABETH ADLY MD May 01, 2017 18:15
--- NOTE | 2017-05-01 22:26 | PN ---
DATE: 05/01/2017 PROBLEMS: 1. Metabolic encephalopathy secondary to over sedating medications . 2. Major depressive disorder with psychotic features. 3. Mild dehydration. 4. Fall risk. 5. Aspiration risk. Doing much better, much more alert this morning now. She has been over 24 hours without any medication. The baclofen has been discontinued. The temazepam has been discontinued and the Zyrtec also been discontinued. She is responding more to her daughter and is actually saying some words as well. OBJECTIVE: VITAL SIGNS: Blood pressure 173/76, pulse 68, respirations 18, pulse ox is 96% on 2 liters, temperature 97.7. GENERAL: Color is improved now. Her eyes are open. HEENT: Her tongue is moist. NECK: Supple. LUNGS: Clear. CARDIOVASCULAR: Regular rhythm and rate with 2/6 systolic murmur. ABDOMEN: Soft, nontender. No masses palpated. EXTREMITIES: Without edema. She neurologically is responding now to cold hands and was able to get up and sit in the chair. LABORATORY DATA: BUN is 20, creatinine is 0.8. CBC: Slightly low platelet count. MRSA is negative. PLAN: We are waiting for a swallow study. We will continue the IV fluids for now and we will have to discuss whether to go upstairs or not again. ISADORA ROACH DO DR: MARISSA/tomi JOB#: [id number] / [id number]
[2017-05-02] VITALS (14 sets, daily range): BP systolic 135–174; BP diastolic 52–92
[2017-05-02] MEDS: IV RINGERS SOLUTION,LACTATED 1,000 ML IV SCH ×2 (04:27→14:34)
[2017-05-02 06:39] LABS: BASO % 1 % (0-3); EOS # 0.1 x10^3/uL (0.0-0.7); EOS % 2 % (0-3); HEMATOCRIT 36.5 % (36.0-47.0); HEMOGLOBIN 12.2 g/dL (12.0-15.5); LYMPH # 1.1 x10^3/uL (1.0-4.8); LYMPH % 13 % (24-48); MEAN CORPUSCULAR HEMOGLOBIN 30 pg (25-35); MEAN CORPUSCULAR HGB CONC 33 g/dL (31-37); MEAN CORPUSCULAR VOLUME 90 fL (79-100); MONO # 0.8 x10^3/uL (0.0-1.1); MONO % 9 % (0-9); NEUT # 6.3 x10^3uL (1.8-7.7); NEUT % 75 % (31-73); PLATELET COUNT 123 x10^3/uL (140-400); RED BLOOD COUNT 4.05 x10^6/uL (3.50-5.40); RED CELL DISTRIBUTION WIDTH 14.6 % (11.5-14.5); WHITE BLOOD COUNT 8.4 x10^3/uL (4.0-11.0)
[2017-05-02 06:48] LABS: ALBUMIN/GLOBULIN RATIO 0.9 (1.0-1.7); CALCIUM 8.4 mg/dL (8.5-10.1); CREATININE 0.6 mg/dL (0.6-1.0); GFR 94.6; MAGNESIUM 1.7 mg/dL (1.8-2.4); POTASSIUM 3.4 mmol/L (3.5-5.1); TOTAL BILIRUBIN 0.8 mg/dL (0.2-1.0); TOTAL PROTEIN 6.2 g/dL (6.4-8.2)
[2017-05-02] MEDS ORDERED: MAGNESIUM SULFATE 2GM 50 ML IV ONE (08:00)
[2017-05-02] MEDS ORDERED: POTASSIUM CHLORIDE 20 MEQ TABLET.ER. PO ONE (08:00)
[2017-05-02] MEDS ORDERED: ACETAMINOPHEN 325 MG TABLET PO PRN (13:30)
[2017-05-02] MEDS: LOSARTAN 50 MG TABLET. PO SCH (14:31)
[2017-05-02] MEDS: amLODIPine BESYLATE 5 MG TABLET PO SCH (14:31)
[2017-05-02] MEDS: ASPIRIN ENTERIC COATED 81 MG TABLET.DR. PO SCH (14:31)
--- NOTE | 2017-05-02 19:26 | PN ---
DATE: 05/02/2017 SUBJECTIVE: The patient denies any new medical or neurological complaints. She eats and drinks well. The recent swallowing function study consistent with dysphagia and recommendation was thickened liquid and no evidence of aspiration risk. OBJECTIVE: GENERAL: A well-developed, well-nourished white female, not in acute distress. VITAL SIGNS: Blood pressure 154/75, respiratory rate is 20, pulse is 97, oxygen saturation is 97% on room air. HEENT: Normocephalic, atraumatic, otherwise unremarkable. NECK: Supple, negative for carotid bruit, lymphadenopathy or thyromegaly. LUNGS: Sounds are clear. CARDIOVASCULAR: Regular rate and rhythm, normal S1, S2. ABDOMEN: Soft, bowel sounds positive. EXTREMITIES: Negative for cyanosis, clubbing or edema. NEUROLOGIC: Mental status: The patient is alert and oriented x 2. The speech is fluent. There is no language dysfunction. The patient recalls to 1/3 immediately. Judgment and abstract thinking. The patient denies hallucination or delusion. Cranial nerves are intact. Motor Examination: No focal muscle bulk was seen. The tone is normal. The strength is 4/5 throughout. Sensory examination revealed normal pinprick and light touch senses throughout. Deep tendon reflexes are symmetric and hypoactive with absent Achilles responses bilaterally. Gait not tested. The patient did not have risk for falls. LABORATORY DATA: CBC revealed white blood cells of 8400, hemoglobin 12.2, hematocrit 36.5, platelet count 123,000. Chemistry revealed 138, potassium 3.4, chloride 102, CO2 30, BUN 14, creatinine 0.6. Calcium 8.4. Liver enzymes are normal. IMPRESSION: 1. Acute encephalopathy - resolved. 2. Multiple medical problems include hypertension, hyperlipidemia, gastroesophageal reflux disease, vitamin D deficiency. 3. Multiple psychiatric problems including depression, anxiety, and possible dementia. RECOMMENDATIONS: 1. Continue with current management initiated by Dr. Salmeron. 2. Avoid sedations as much as possible. 3. Physical therapy evaluation. M Leodan NG MD DR: KATTY/tomi JOB#: [id number] / [id number]
--- NOTE | 2017-05-02 22:39 | CONS ---
DATE OF CONSULTATION: 05/01/2017 PSYCHIATRIC CONSULTATION This is a late entry for 05/01/2017. SUBJECTIVE: I met with the patient in the evening of 05/01/2017. Discussed with nursing staff, reviewed the chart. This note covers the elements not covered in my initial note of 05/01/2017. The patient was transferred to the ICU per Dr. Salmeron for encephalopathy. This was while [facility] was on the [facility]. The [facility] was [facility] from the [facility] for increase psychotic symptoms, confusion, withdrawal at the [facility]. I have been asked for a Psychiatric consult while she is in the ICU. Since being in the ICU, her psychotropics have being held. The Risperdal was previously discontinued and she had been on Zoloft and temazepam for mood and insomnia, even those have been held. She is still withdrawn, not very interactive, confused. Neurology consult has been done per Dr. Duncan and some of her verbal responses are unconnected to the questions asked of her. MENTAL STATUS EXAM: The patient is not very verbal, often responses monosyllabic. Insight, judgment, recent and remote memory, attention, concentration, fund of knowledge poor, consistent with her diagnosis. Mood is withdrawn, anxious. IMPRESSION: Major depressive disorder with psychotic features, possible major neurocognitive disorder, early Alzheimer, vascular with delusion, depression. PLAN: I have reviewed a 2-page handwritten note by the daughter regarding the patient's history that when she was at [facility], she was sent to [facility] because of question of TIA and by the next day, she was alert, but agitated. She had a UTI, which was treated. She had other similar episodes of confusion almost on a weekly basis and mental status changes. No clear cause was determined. Before all of this on 03/23/2017, the patient was at an assisted living [facility] and that is when the initial episode started. Once the patient is medically stable, we will see whether she meets criteria to come back to the [facility] or go back to the [facility]. MAN Anthony DALY MD DR: MONIKA/tomi JOB#: [id number] / [id number]
[2017-05-03 02:12] VITALS: BP 141/70
[2017-05-03] MEDS: IV RINGERS SOLUTION,LACTATED 1,000 ML IV SCH ×2 (04:38→05:45)
[2017-05-03 04:56] VITALS: BP 153/62
[2017-05-03 06:23] VITALS: BP 164/72
[2017-05-03 07:27] LABS: BASO % 0 % (0-3); EOS # 0.2 x10^3/uL (0.0-0.7); EOS % 3 % (0-3); HEMATOCRIT 32.2 % (36.0-47.0); HEMOGLOBIN 10.9 g/dL (12.0-15.5); LYMPH # 1.2 x10^3/uL (1.0-4.8); LYMPH % 15 % (24-48); MEAN CORPUSCULAR HEMOGLOBIN 30 pg (25-35); MEAN CORPUSCULAR HGB CONC 34 g/dL (31-37); MEAN CORPUSCULAR VOLUME 90 fL (79-100); MONO # 0.8 x10^3/uL (0.0-1.1); MONO % 10 % (0-9); NEUT # 5.6 x10^3uL (1.8-7.7); NEUT % 72 % (31-73); PLATELET COUNT 120 x10^3/uL (140-400); RED BLOOD COUNT 3.58 x10^6/uL (3.50-5.40); RED CELL DISTRIBUTION WIDTH 14.4 % (11.5-14.5); WHITE BLOOD COUNT 7.9 x10^3/uL (4.0-11.0)
[2017-05-03 07:44] LABS: CALCIUM 8.1 mg/dL (8.5-10.1); CREATININE 0.7 mg/dL (0.6-1.0); GFR 79.2; MAGNESIUM 1.9 mg/dL (1.8-2.4); POTASSIUM 3.2 mmol/L (3.5-5.1); TOTAL BILIRUBIN 0.6 mg/dL (0.2-1.0)
--- NOTE | 2017-05-03 08:09 | DS ---
DATE OF DISCHARGE: 05/03/2017 DISCHARGE DIAGNOSES: 1. Metabolic encephalopathy secondary to over sedating medications. 2. Major depressive disorder. 3. Mild dehydration. 4. Fall risk. 5. Aspiration risk. 6. Hypokalemia, corrected. 7. Hypomagnesemia, corrected. HOSPITAL COURSE: This is an 86-year-old female who was [facility] the [facility] and had received a combination of baclofen, temazepam, and Zyrtec, which was an auto-substitute for Claritin. She became extremely over sedated and obtunded and was transferred down to the ICU. All her medications were held and in 48 hours, she woke up and she was much more alert, started to feed herself and was working with PT and OT. Long discussions with her daughter and what is best for her at this time was decided that she would go back to the nursing facility off all these medications. She will be placed on prison services to get her strength back and then some medications could probably be slowly reintroduced. She is very sensitive to medications. PHYSICAL EXAMINATION: VITAL SIGNS: Discharge blood pressure 164/72, pulse 66, respirations 24. DISPOSITION: To prison services at older date. Her medications were reconciled by myself with instructions to the nursing staff. ISADORA ROACH DO DR: MARISSA/tomi JOB#: [id number] / [id number]
[2017-05-03] MEDS: LOSARTAN 50 MG TABLET. PO SCH (08:31)
[2017-05-03] MEDS: amLODIPine BESYLATE 5 MG TABLET PO SCH (08:32)
[2017-05-03] MEDS: ASPIRIN ENTERIC COATED 81 MG TABLET.DR. PO SCH (08:33)
[2017-05-03 08:39] VITALS: BP 164/78
[2017-05-03] MEDS ORDERED: POTASSIUM CHLORIDE 20 MEQ TABLET.ER. PO ONE (09:00)
[2017-05-03] MEDS ORDERED: ENOXAPARIN 40 MG/0.4 ML DISP.SYRIN. SQ SCH (09:00)
[2017-05-03] MEDS ORDERED: CHOLECALCIFEROL (VITAMIN D3) 1,000 UNIT TABLET PO SCH (09:00)
--- NOTE | 2017-05-03 09:30 | PN ---
DATE: 05/03/2017 SUBJECTIVE: The patient denies any new medical or neurological complaints. She always complains about food and she does not like to have breakfast today and she is waiting for the lunch. She denies headaches, visual disturbances, nausea, vomiting, chest pain, shortness of breath or palpitation. OBJECTIVE: GENERAL: Well-developed, well-nourished white female, not in acute distress. VITAL SIGNS: Blood pressure 164/78, respiratory rate 20, pulse is 66 and oxygen saturation oxygen saturation 94% on room air. HEENT: Normocephalic, atraumatic, otherwise unremarkable. NECK: Supple. Negative for carotid bruit, lymphadenopathy or thyromegaly. LUNGS: Clear to A and P. CARDIOVASCULAR: Regular rate and rhythm, normal S1, S2. There is 1/2 systolic murmur. ABDOMEN: Soft, bowel sounds positive. EXTREMITIES: Negative for cyanosis, clubbing or pitting edema. NEUROLOGICAL EXAM: Mental Status: The patient is alert and oriented x 2. The speech is fluent. There is no language dysfunction. The patient recalls 1/3 immediately and 1/3 after 1 and 3 minutes. Judgment and abstract thinking are fair. The patient denies hallucination or delusion. Cranial nerves are intact. Motor Examination: No focal muscle bulk was seen. The tone is normal. The strength is 4/5 throughout. Sensory examination revealed normal pinprick and light touch senses throughout. Deep tendon reflexes were symmetric and hypoactive with absent Achilles responses. Gait: The patient has unsteady stance. LABORATORY DATA: CBC revealed white blood cells of 7.9 thousand, hemoglobin 10.9, hematocrit 32.2, platelet count 120,000. Chemistry revealed sodium of 139, potassium low at 3.2, chloride 104, CO2 of 30, BUN 11, creatinine 0.7, glucose is 99 and calcium 8.1. Liver enzymes are normal. IMPRESSION: 1. Encephalopathy -- resolved. 2. Multiple medical problems including hypertension, hyperlipidemia and GERD. 3. Multiple psychiatric problems including major depression, anxiety and dementia. RECOMMENDATIONS: 1. Continue with current management initiated by Dr. Salmeron. 2. Physical therapy as tolerated. 3. Continue with psychiatric care. M Leodan NG MD DR: KATTY/tomi JOB#: [id number] / [id number]
[2017-05-03 10:07] VITALS: BP 163/66
== END 2017-05-03 10:00 | DRG 917 ==
LOC: ICU 13:05
PROVIDERS: ADMIT Family Medicine; ATTEND Family Medicine
DX: T65.891A Toxic effect of other specified substances, accidental (unintentional), initial encounter (principal); G93.41 Metabolic encephalopathy; F32.3 Major depressive disorder, single episode, severe with psychotic features; E55.9 Vitamin D deficiency, unspecified; E78.5 Hyperlipidemia, unspecified; E86.0 Dehydration; E87.6 Hypokalemia; F02.80 Dementia in other diseases classified elsewhere, unspecified severity, without behavioral disturbance, psychotic disturbance, mood disturbance, and anxiety; F41.9 Anxiety disorder, unspecified; I10 Essential (primary) hypertension; I73.9 Peripheral vascular disease, unspecified; K21.9 Gastro-esophageal reflux disease without esophagitis; G47.00 Insomnia, unspecified; K59.09 Other constipation; G30.0 Alzheimer's disease with early onset; Z91.81 History of falling; Z88.8 Allergy status to other drugs, medicaments and biological substances; Y92.89 Other specified places as the place of occurrence of the external cause
CPT/HCPCS: 36415; 80053; 83605; 83735; 85027; 87040; 87641; J1650; J3475; J7120; 92610; 97110; 97116; 97530